=== PATIENT | male | born 1960 | race Caucasian/White ===

== ENCOUNTER 2019-09-05 18:46 | Inpatient (IN) | payer OTHER, SELFPAY ==
[2019-09-05] VITALS (8 sets, daily range): BP systolic 164–207; BP diastolic 94–111; PULSE 64–82; RESP 18–22; TEMP 37; O2SAT 96–100; BMI 26.9
--- NOTE | ~2019-09-05 | MR_ITS ---
EXAMINATION: MR brain/brain stem wo/w con DATE: 09/06/2019 09:36 INDICATION: Left hemiparesis. Facial weakness. TECHNIQUE: Magnetic resonance imaging (MRI) of the brain and brainstem was performed without and with 17 mL MultiHance intravenous contrast. Sequences included sagittal and axial T1-weighted FSE, axial diffusion-weighted FS EPI, axial T2*-weighted GRE, axial T2-weighted FLAIR Propeller, and axial T2-we ighted Propeller. Postcontrast sequences included axial and coronal T1-weighted FSE. Apparent diffusi on coefficient (ADC) maps were created. COMPARISON: Head CTA 09/06/2019 FINDINGS: There are scattered areas of nonspecific increased T2-weighted signal intensity in the cere bral white matter. There are old lacunar infarcts in the alisia and right thalamus. There is no intracr anial hemorrhage, acute infarction, or abnormal intracranial mass lesion. The ventricles are normal i n size. The paranasal sinuses are clear. The orbits are normal. The mastoid air cells are normal. IMPRESSION: 1. Old lacunar infarcts in the alisia and right thalamus. 2. Mild nonspecific cerebral white matter disease, which likely represents chronic small vessel ische shayla disease. Reviewed, dictated and finalized at location A. IMPRESSION: 1. Old lacunar infarcts in the alisia and right thalamus. 2. Mild nonspecific cerebral white matter disease, which likely represents sales utility representative axel small vessel ischemic disease.
--- NOTE | ~2019-09-05 | US_ITS ---
EXAMINATION: US carotid duplex BI DATE: 09/06/2019 16:34 INDICATION: Left hemiparesis. TECHNIQUE: Grayscale, color Doppler, and pulsed Doppler images of the cervical carotid arteries were obtained. The degree of vessel stenosis is placed in one of the following categories: normal, <50%, 5 0-69%, >=70% but less than near-occlusion, near-occlusion, or total occlusion. Note that percent sten osis relative to normal distal artery lumen diameter is indirectly measured from velocity measurement s as described by Willie, et al. Radiology 2003; 229:340-346. COMPARISON: None. FINDINGS: RIGHT: The right common carotid artery (CCA) peak systolic velocity (PSV) is 86 cm/s. The right internal car otid artery (ICA) PSV is 48 cm/s. The right ICA end-diastolic velocity (EDV) is 14 cm/s. The right IC A/CCA PSV ratio is 0.6. Grayscale and color Doppler images yield an estimate of <50% diameter reducti on from plaque in the ICA. There is antegrade flow in the right vertebral artery. LEFT: The left CCA PSV is 86 cm/s. The left ICA PSV is 56 cm/s. The left ICA EDV is 19 cm/s. The left ICA/C CA PSV ratio is 0.7. Grayscale and color Doppler images yield an estimate of <50% diameter reduction from plaque in the ICA. There is antegrade flow in the left vertebral artery. IMPRESSION: 1. <50% stenosis in the right internal carotid artery. 2. <50% stenosis in the left internal carotid artery. Reviewed, dictated and finalized at location A.
--- NOTE | ~2019-09-05 | CT_ITS ---
EXAMINATION: CT BRAIN W/O DATE: 09/05/2019 18:52 INDICATION: CVA symptoms TECHNIQUE: Computed tomography (CT) of the head was performed without intravenous contrast. The dose- length product was 681.00 mGy-cm. . The mA was adjusted according to patient size. Iterative reconstr uction technique was employed. COMPARISON: No prior studies for comparison. FINDINGS: Normal brain parenchymal volume for age. Normal whitney-white differentiation. There is a subt le hypodensity in the alisia. Cannot exclude acute infarction. No ventriculomegaly or midline shift. Midline sagittal images demonstrate a normal corpus callosum, c raniovertebral junction and sella turcica. Basilar cisterns are patent. Paranasal sinuses and mastoids are pneumatized. No depressed skull fractures. IMPRESSION: 1. Subtle hypodensity of the alisia. Cannot exclude acute infarction. Recommend correlation with MRI. As per stroke protocol, I called these results to emergency room, discussed with Reyna Xavier at 09/05/2019 18:58 CDT. Reviewed, dictated and finalized at location A. IMPRESSION: 1. Subtle hypodensity of the alisia. Cannot exclude acute infarction. Recommend c orrelation with MRI. As per stroke protocol, I called these results to emergency room, discussed wit h Dr. Keri Cobos MD at 09/05/2019 18:58 CDT.
--- NOTE | ~2019-09-05 | CT_ITS ---
EXAMINATION: CTA brain DATE: 09/06/2019 05:29 INDICATION: Acute stroke with facial droop and left-sided weakness. TECHNIQUE: Computed tomographic angiography (CTA) of the head was performed without and with 100 mL O mnipaque-350 intravenous contrast. Volume-rendered and maximum intensity projection 3D reconstruction s of the intracranial arteries were created by the technologist on a separate workstation. The dose-l ength product was mGy-cm. COMPARISON: None. FINDINGS: Minimal atherosclerotic calcification at the supraclinoid portion of the right internal carotid arter y. There is no hemodynamically significant stenosis in the vertebral, basilar and internal carotid ar teries. Vertebral arteries are codominant. There are no aneurysms identified. Both A1 and P1 segment s are patent. The right A1 segment is however significantly smaller than the left with additional sup ply to the right anterior cerebral artery likely supplied via a large patent anterior to indicating a rtery. Cerebral arterial arborization appears symmetric. The dural sinuses are patent. No abnormally enhancing brain lesions identified. No acute intracranial hemorrhage, acute infarction or abnormal ex tra axial fluid collection. Ventricles are normal and symmetric. No mass/mass effect. The orbits, par anasal sinuses and mastoid air cells are normal. IMPRESSION: 1. No acute intracranial process with normal cerebral angiogram demonstrating no significant stenosis , thrombosis or aneurysm. Reviewed, dictated and finalized at location A. IMPRESSION: 1. No acute intracranial process with normal cerebral angiogram demonstrating n o significant stenosis, thrombosis or aneurysm.
--- NOTE | ~2019-09-05 | XR_ITS ---
EXAMINATION: XR chest 1V portable 09/05/2019 19:49 INDICATION: Hypertension. CVA. PROCEDURE: AP portable chest COMPARISON: No prior studies for comparison. FINDINGS: The lungs are clear. The lungs are hyperinflated which is consistent with, but not diagnost ic of chronic obstructive pulmonary disease. The cardiomediastinal silhouette is within normal limits . There are no pleural effusions. There is no pneumothorax suspected. IMPRESSION: 1: NO ACUTE CARDIOPULMONARY DISEASE. Reviewed, dictated and finalized at location A.
--- NOTE | ~2019-09-05 | CT_ITS ---
EXAMINATION: CTA neck DATE: 09/06/2019 16:46 INDICATION: Left hemiparesis. TECHNIQUE: Computed tomographic angiography (CTA) of the neck was performed with 100 mL Omnipaque-350 intravenous contrast. Automated exposure control and iterative reconstruction technique were employe d. The dose-length product was 562.06 mGy-cm. Maximum intensity projection 3D-reconstructions were cr eated by the technologist on a separate workstation. COMPARISON: None. FINDINGS: There is mild emphysema. There are no pathologically enlarged lymph nodes. Mild stenosis of proximal right vertebral artery. The vertebral arteries are codominant. There is plaque in the proxi mal internal carotid arteries. There is 0% stenosis of the proximal right internal carotid artery rel ative to normal distal artery lumen diameter (NASCET criteria). There is 0% stenosis of the proximal left internal carotid artery relative to normal distal artery lumen diameter. There is severe cervica l spondylosis. IMPRESSION: 1. 0% stenosis of the proximal internal carotid arteries relative to normal distal artery lumen diam eters (NASCET criteria). Reviewed, dictated and finalized at location A. IMPRESSION: 1. 0% stenosis of the proximal internal carotid arteries relative to normal di stal artery lumen diameters (NASCET criteria).
--- NOTE | 2019-09-05 18:46 | ECG_ITS ---
Measurements Intervals [place] Rate: 77 P: 37 [place]: 171 QRS: 27 QRSD: 76 T: 27 QT: 370 QTc: 420 Interpretive Statements SINUS RHYTHM EARLY PRECORDIAL R/S TRANSITION BASELINE WANDER- II, III BORDERLINE ECG Electronically Signed On 09-05-2019 19:28:45 CDT by Pardeep Landrum D.O.
[2019-09-05 19:03] LABS: Glucose Point of Care 90 (65-105)
[2019-09-05 19:12] LABS: Basophils Absolute Auto 0.1 K/mm3 (0.0-0.1); Basophils Percent Auto 0.6 % (0.2-1.2); Eosinophils Absolute Auto 0.3 K/mm3 (0-0.3); Eosinophils Percent Auto 2.4 % (0-4.4); Hematocrit 43.4 % (42.0-52.0); Immature Granulocyte Absolute 0.03 K/mm3 (0.00-0.031); Immature Granulocyte Percent A 0.2 % (0-0.5); Lymphocytes Absolute Auto 5.44 K/mm3 (0.9-3.2); Lymphocytes Percent Auto 43.8 % (18.3-44.2); Mean Corpuscular HGB Conc 34.6 g/dl (32-36); Mean Corpuscular Hemoglobin 32.4 pg (26-34); Mean Corpuscular Volume 93.7 fl (80-100); Mean Platelet Volume 10.1 fl (7.4-10.4); Monocytes Absolute Auto 1.1 K/mm3 (0.1-0.6); Monocytes Percent Auto 8.9 % (2.6-8.5); Neutrophils Absolute Auto 5.5 K/mm3 (1.3-6.7); Neutrophils Percent Auto 44.1 % (45.5-73.1); Platelet Count Result 233 k/mm3 (150-375); Red Blood Count 4.63 M/mm3 (4.6-6.20); Red Cell Distribution Width 13.2 % (11.5-14.5); White Blood Count 12.4 K/mm3 (4.5-10.0)
[2019-09-05 19:21] LABS: INR 0.9; Prothrombin Time 12.3 Seconds (11.1-14.7)
[2019-09-05 19:22] LABS: Partial Thromboplastin Time 28.2 SECONDS (22.3-36.8)
[2019-09-05 19:23] LABS: Blood Urea Nitrogen 22 mg/dL (9-20); Calcium 8.4 mg/dL (8.4-10.2); Carbon Dioxide 24 mmol/L (22-30); Chloride 107 mmol/L (98-107); Estimated Glomerular Filt Rate > 60; Glucose 92 mg/dL (75-110); Potassium 3.4 mmol/L (3.4-5.0); Sodium 138 mmol/L (137-145)
--- NOTE | 2019-09-05 19:23 | ED.NEUROSD ---
HPI - Neuro Symptoms/Deficit General Chief Complaint: Suspected CVA Stated Complaint: Stroke like symptoms - resolved Time Seen by Provider: 09/05/19 19:00 History of Present Illness HPI Narrative: Patient is a 58-year-old male who presents ER with strokelike symptoms. At 6:10 PM patient developed left-sided weakness and left-sided facial droop. He had dysarthria and when he walks he felt extremely imbalanced. Symptoms lasted for 25 minutes. He is currently symptom-free. No chest pain or shortness of breath. Had seen his PCP earlier today, reports he has mildly elevated blood pressure in the 150 systolic but that he is not on any medication for this. He is a smoker but plans on quitting after the events today. Related Data Allergies Allergy/AdvReac Type Severity Reaction Status Date / Time No Known Allergies Allergy Unverified 11/27/15 12:12 Review of Systems Review of Systems: All systems reviewed & are unremarkable except as noted in HPI and below Cardiovascular: Cardiovascular: Denies chest pain, Denies rapid heart rate and Denies radiating jaw, neck or arm pain Respiratory: Respiratory: Denies cough, Denies dyspnea and Denies wheezing Neurologic: Reports dizziness, Denies headache(s), Reports focal weakness and Denies numbness PMFSH Past Medical History Medical History (Updated 09/05/19 @ 20:02 by Anam Sanchez MD) Hypertension Surgical History Surgical History (Updated 09/05/19 @ 19:25 by Anam Sanchez MD) H/O inguinal hernia repair Family History Family History (Updated 11/13/15 @ 09:47 by DOCTOR UNKNOWN) Father Family history of malignant neoplasm Social History Social History Smoking status: Heavy tobacco smoker Alcohol intake: current Gender identity (if verbalized by the patient): Male Exam Narrative: Exam Narrative: GENERAL: Well-appearing, well-nourished, and in no acute distress. HEAD: Normocephalic, atraumatic. EYES: PERRL and EOMI. CHEST: Clear to auscultation. No respiratory distress. HEART: Regular rate and rhythm. Normal and equal peripheral pulses. ABDOMEN: Soft, nontender, nondistended. EXTREMITIES: Normal range of motion. No edema. SKIN: Warm, dry, no rash. NEURO: No focal deficits. Cranial nerves II through XII intact. No upper or lower extremity drift. Normal bwlrlw-ed-zoeu and ssfd-jx-hddz testing. No ataxia with walking. No dysarthria. Alert and oriented x3. PSYCH: Normal mood and affect. Course Course Emergency Course: Patient informed of results and treatment plan. Admit to hospitalist service. Blood pressure coming down nicely without intervention. Vital Signs Vital signs: Vital Signs Temperature 98.6 F 09/05/19 19:16 Pulse Rate 76 09/05/19 19:16 Respiratory Rate 22 H 09/05/19 19:16 Blood Pressure 207/111 H 09/05/19 19:16 Pulse Oximetry 96 09/05/19 19:16 Temperature 98.6 F 09/05/19 19:16 Pulse Rate 67 09/05/19 19:49 Respiratory Rate 20 09/05/19 19:49 Blood Pressure 164/94 H 09/05/19 19:49 Pulse Oximetry 98 09/05/19 19:49 MDM - Neuro Symptoms/Deficit Lab Data Result diagrams: 09/05/19 19:03 09/05/19 19:03 Labs: Lab Results 09/05/19 09/05/19 09/05/19 Range/Units 18:58 19:03 19:03 WBC 12.4 H (4.5-10.0) K/mm3 RBC 4.63 (4.6-6.20) M/mm3 Hgb 15.0 (14.0-18.0) g/dL Hct 43.4 (42.0-52.0) % MCV 93.7 (80-100) fl MCH 32.4 (26-34) pg MCHC 34.6 (32-36) g/dl RDW 13.2 (11.5-14.5) % Plt Count 233 (150-375) k/mm3 MPV 10.1 (7.4-10.4) fl Immature Gran % (Auto) 0.2 (0-0.5) % Neut % (Auto) 44.1 L (45.5-73.1) % Lymph % (Auto) 43.8 (18.3-44.2) % [place] % (Auto) 8.9 H (2.6-8.5) % Eos % (Auto) 2.4 (0-4.4) % Baso % (Auto) 0.6 (0.2-1.2) % Lymph # (Auto) 5.44 H (0.9-3.2) K/mm3 [place] # (Auto) 1.1 H (0.1-0.6) K/mm3 Eos # (Auto) 0.3 (0-0.3) K/mm3 Baso # (Auto) 0.1 (0.0-0.1) K/mm3 Abs Immat
[2019-09-05 19:35] LABS: Troponin I < 0.012 ng/mL (0.000-0.034)
--- NOTE | 2019-09-05 21:07 | PM.IMHP ---
H&P: HPI History of Present Illness Chief complaint: stroke, hypertension Narrative: This is a 58 year old male who is a known chronic smoker with no known medical problems presented to the hospital with a complaint of stroke like symptoms that lasted about 20 minutes in duration around 6 pm this evening. At about 6:10 pm the patient was starting his car and he suddenly developed severe bilateral lower extremity weakness, left upper extremity weakness, left facial droop, and slurred speech. He could not ambulate at first and his called EMS. Within 15 mintues his symptoms started to resolve. He took 4 ASA at home prior to EMS arriving. On arrival to the Emergency Room the patient no longer has any stroke like symptoms. He was found to have elevated blood pressure in the ER tonight. He denies any fever, chills, shortness of breath, cough, chest pain, sore throat, headache, blurry vision, passing out, seizure like activity, abdominal pain, nausea, vomiting, diarrhea, rectal bleeding or LE edema. The patient states that he will no longer smoke cigarettes after today. CT brain demonstrated subtle hypodensity of the alisia. The patient has been admitted to the hospital for a possible CVA. Review of Systems Review of Systems: All systems reviewed & are unremarkable except as noted in HPI and below PMFSH Past Medical History Medical History Hypertension Surgical History Surgical History H/O inguinal hernia repair Family History Family History Father Family history of malignant neoplasm Lung cancer Mother Lung cancer Social History Social History Smoking packs per day: 1 Smoking cigarettes per day: 20.0 Years smoked: 39 Smoking pack-years: 39.00 Smoking status: Current every day smoker Tobacco type: cigarettes and cigars Smoking end date: 09/05/19 Alcohol intake: current Drinks per week: 40 Substance use: never Gender identity (if verbalized by the patient): Male Spiritual care concerns: No Meds Home Medications and Allergies Home Medications Medication Instructions Recorded Confirmed Type B Complex-Vitamin B12 1 caplet PO DAILY 09/05/19 09/05/19 History ascorbic acid (vitamin C) 5,000 mg PO DAILY 09/05/19 09/05/19 History cholecalciferol (vitamin D3) 5,000 unit PO BID 09/05/19 09/05/19 History magnesium gluconate 400 mg PO DAILY 09/05/19 09/05/19 History vitamin K2 40 mcg PO DAILY 09/05/19 09/05/19 History Allergies Allergy/AdvReac Type Severity Reaction Status Date / Time No Known Allergies Allergy Verified 09/05/19 20:46 Vital Signs Vital Signs - 24 hr 09/05/19 19:16 09/05/19 19:44 09/05/19 19:49 Temperature 37.0 C Pulse Rate 76 71 67 Respiratory Rate 22 H 18 20 Blood Pressure 207/111 H 173/102 H 164/94 H Pulse Oximetry 96 98 98 09/05/19 20:53 09/05/19 20:57 Temperature Pulse Rate 72 82 Respiratory Rate 18 18 Blood Pressure 169/96 H 168/96 H Pulse Oximetry 98 98 Exam Const: General: cooperative, healthy appearing, no acute distress, alert and awake Nutritional Appearance: well nourished Orientation/consciousness: patient oriented x3 HENMT: Head: normal to inspection General nose exam: Normal external nose present Face and sinus: normal facial exam Mouth: Yes Normal oral and palatal mucosa present and Yes oropharynx normal Eyes: Pupils: Equal, round and reactive pupils present EOM: EOMs intact bilaterally Neck: Neck: supple and no JVD Thyroid: thyroid normal Lymphatic: lymphadenopathy not noted Resp: Effort & Inspection: normal respiratory effort Auscultation: clear to auscultation bilaterally Cardio: Rate: regular rate Rhythm: regular rhythm Heart sounds: no murmurs GI: Inspection: normal to inspection Auscultation: nor
--- NOTE | 2019-09-05 21:15 | ADMGEN ---
This patient, Jose Kumar, was admitted to Medical Room 342-01. Patient/family oriented to hospital policies and general routines including ID bracelet, bed and alarms, visiting hours, pain management, procedures, bathroom and other care routines, personal items, smoking policy, room service/diet, and visiting hours. Valuables list has been completed. Information on how to activate the Rapid Response Team has been discussed. Patient/Family are encouraged to report perceived risks to care and to ask questions if they do not understand what they are told or what they should do.
[2019-09-06] VITALS (19 sets, daily range): BP systolic 136–185; BP diastolic 81–102; PULSE 52–74; RESP 18–20; TEMP 36–36.6; O2SAT 97–100
[2019-09-06] MEDS: hydrALAZINE HCL 20 MG/ML VIAL 10 MG IV PUSH (05:04)
--- NOTE | 2019-09-06 05:04 | ECG_ITS ---
Measurements Intervals [place] Rate: 56 P: 66 [place]: 160 QRS: 51 QRSD: 93 T: 40 QT: 442 QTc: 427 Interpretive Statements SINUS BRADYCARDIA EARLY PRECORDIAL R/S TRANSITION VOLTAGE CRITERIA FOR LVH BORDERLINE ECG Electronically Signed On 09-06-2019 7:07:55 CDT by Pardeep Landrum D.O.
--- NOTE | 2019-09-06 05:08 | PC.NURSE ---
at 0500 patient called and when staff checked on patient he was found having the same stroke symptoms that he presented to the ED with. Rapid response code stroke called.
--- NOTE | 2019-09-06 05:14 | PM.EVENT ---
Event Note Event Note Event Note: Rapid Response Note This 58 year old male was admitted to the hospital last night for stroke like symptoms which resolved. Rapid Response was called overhead as the patient started to exhibit similar stroke like symptoms again. The patient began to experience left sided weakness, left sided facial droop and slurred speech around 5 am. His symptoms lasted less than 5 minutes and then began to resolve quickly. CTA Brain was obtained and I have called and discussed the case w/ and he is in agreement that we should load the patient with Plavix 600 mg PO. ~Acute Ischemic stroke -Transfer to IMU -Close monitoring of brain function -Continue Neurology recommendations -MRI pending this morning -I will reassess as needed
[2019-09-06] MEDS: CLOPIDOGREL BISULFATE 300 MG TABLET 600 MG PO (05:51)
--- NOTE | 2019-09-06 06:00 | ECHO_ITS ---
Patient Info Name: Jose Kumar Age: 58 years : 1960 Gender: Male Ht: 70 in Wt: 187 lbs BSA: 2.06 m2 HR: 63 bpm BP: 180 / 102 mmHg Heart Rhythm: Sinus Rhythm Technical Quality: Good Exam Date: 09/06/2019 11:35 AM Exam Location: [facility] Patient Status: Inpatient Admit Date: 09/05/2019 Staff Ordering Physician: Anam Sanchez MD [place] Head Tender: Raphael Madsen RDCS, RT Attending Provider: Quentin Alston MD Referring Physician: Daniel SILVEIRA; Exam Type: CA echo doppler color flow Study Info Indications I63.219 - Cerebral infarction due to unspecified occlusion or stenosis of unspecified vertebral arteries Complete two-dimensional, color flow and Doppler transthoracic echocardiogram is performed. Summary 1. Left ventricular systolic function is normal, estimated at 65-70%. 2. There is mildly increased left ventricular wall thickness. 3. The left ventricular diastolic function is grade I diastolic dysfunction. 4. There is trace tricuspid valve regurgitation. 5. Unable to estimate PA systolic pressure due to poor spectral resolution of tricuspid regurgitant jet velocity. 6. There is trace mitral valve regurgitation. 7. Consider bubble study and/or transesophageal echocardiogram if clinically indicated given concern for stroke. Recommendations * Consider bubble study and/or transesophageal echocardiogram if clinically indicated given concern for stroke. Left Ventricle Left ventricular chamber dimension is normal. Left ventricular systolic function is normal, estimated at 65-70%. There is mildly increased left ventricular wall thickness. The left ventricular diastolic function is grade I diastolic dysfunction. Global longitudinal strain is mildly elevated at -17 %. Right Ventricle Right ventricular chamber dimension is normal. Right ventricular systolic function is normal. Left Atria Left atrial chamber dimension is normal. Right Atria Right atrial chamber dimension is normal. Aortic Valve The aortic valve is trileaflet. There is no aortic valve stenosis. There is no aortic valve regurgitation. Pulmonic Valve The pulmonic valve is not well visualized. There is trace pulmonic regurgitation. Mitral Valve The mitral valve has normal leaflets. There is trace mitral valve regurgitation. Tricuspid Valve The tricuspid valve leaflets are normal. There is trace tricuspid valve regurgitation. Unable to estimate PA systolic pressure due to poor spectral resolution of tricuspid regurgitant jet velocity. Pericardium/Pleural The pericardium appears normal. There is no pericardial effusion. Inferior Vena Cava Normal inferior vena cava with >50% collapse upon inspiration consistent with normal right atrial pressure, 5 mmHg. Aorta The aortic root size at the sinus of Valsalva is normal. Left Ventricular Outflow Tract Name Value Normal LVOT Doppler LVOT Peak Gradient 6 mmHg LVOT Mean Gradient 3 mmHg LVOT VTI 24 cm LVOT VTI/AV VTI Ratio 0.9 Mitral Valve Name
--- NOTE | 2019-09-06 06:32 | PC.NURSE ---
This patient, Jose Kumar, was received from [ ] on 09/06/19 at 0632. Personal belongings list checked and signed. Patient/family oriented to unit policies and routines
--- NOTE | 2019-09-06 06:33 | PC.NURSE ---
This patient, Jose Kumar, was transferred to [IMU 205] on 09/06/19 at 0625. Personal belongings sent with patient. Belongings list checked and signed with receiving [ ]. Report given to [ Xiomy]. Appropriate documentation sent with patient.
[2019-09-06 06:55] LABS: Basophils Absolute Auto 0.1 K/mm3 (0.0-0.1); Basophils Percent Auto 0.7 % (0.2-1.2); Eosinophils Absolute Auto 0.2 K/mm3 (0-0.3); Eosinophils Percent Auto 2.2 % (0-4.4); Hematocrit 45.9 % (42.0-52.0); Hemoglobin 15.9 g/dL (14.0-18.0); Immature Granulocyte Absolute 0.04 K/mm3 (0.00-0.031); Immature Granulocyte Percent A 0.4 % (0-0.5); Lymphocytes Absolute Auto 3.09 K/mm3 (0.9-3.2); Lymphocytes Percent Auto 29.4 % (18.3-44.2); Mean Corpuscular HGB Conc 34.6 g/dl (32-36); Mean Corpuscular Hemoglobin 32.6 pg (26-34); Mean Corpuscular Volume 94.3 fl (80-100); Mean Platelet Volume 10.4 fl (7.4-10.4); Neutrophils Absolute Auto 6.1 K/mm3 (1.3-6.7); Neutrophils Percent Auto 58.3 % (45.5-73.1); Platelet Count Result 228 k/mm3 (150-375); Red Blood Count 4.87 M/mm3 (4.6-6.20); Red Cell Distribution Width 13.3 % (11.5-14.5); White Blood Count 10.5 K/mm3 (4.5-10.0)
[2019-09-06 07:10] LABS: Blood Urea Nitrogen 17 mg/dL (9-20); Calcium 8.4 mg/dL (8.4-10.2); Carbon Dioxide 19 mmol/L (22-30); Chloride 110 mmol/L (98-107); Cholesterol 182 mg/dL (0-200); Estimated CRCL calculation 92 ml/min; Estimated Glomerular Filt Rate > 60; Glucose 96 mg/dL (75-110); HDL Direct 49 mg/dL; Potassium 3.6 mmol/L (3.4-5.0); Sodium 136 mmol/L (137-145); Triglycerides 86 mg/dL (<150)
[2019-09-06 07:21] LABS: LDL Cholesterol Direct 112 mg/dL
--- NOTE | 2019-09-06 08:49 | PM.IMPN ---
Progress Note: A&P Assessment and Plan (1) Stroke: Qualifiers: CVA mechanism: other Qualified Code(s): I63.89 - Other cerebral infarction Code(s): I63.9 - Cerebral infarction, unspecified Status: Acute Assessment and Plan: Patient having recurrent left sided weakness. CT brain on admission showing subtle hypodensity of the alisia. CTA brain showing no acute intracranial process (but did not include the carotids). Continue telemetry and neurochecks. Monitor blood pressure closely and allow for permissive HTN. Continue ASA and Plavix therapy per Neurology. Neurology consult ordered. MRI pending. Lipid panel noted. Start Lipitor. Echocardiogram w/ bubble study and Carotid doppler U/S ordered. May need carotid CTA. Will discuss with neurology (2) Essential hypertension: Code(s): I10 - Essential (primary) hypertension Status: Acute Assessment and Plan: Blood pressure reviewed on 09/06/2019. Blood pressure elevated at times. Will allow for permissive HTN for now. Hydralazine IV avaiable as needed w/ parameters. (3) Leukocytosis: Qualifiers: Leukocytosis type: unspecified Qualified Code(s): D72.829 - Elevated white blood cell count, unspecified Code(s): D72.829 - Elevated white blood cell count, unspecified Status: Acute Assessment and Plan: WBC 12.4 on admission but better today. Most likely secondary to stress response from the acute CVA. (4) Tobacco dependence: Code(s): F17.200 - Nicotine dependence, unspecified, uncomplicated Status: Chronic Assessment and Plan: Dr Marquez has counseled the patient for 4 minutes on tobacco cessation. He verbalized his understanding and agreement. Subjective Date/time seen: 09/06/19 08:49 Interval history: 58yo right-handed male with hx of untreated HTN here for left sided weakness. Assuming care. Chart reviewed. Case discussed interlacer. Patient states he has had elevated blood pressure that mostly runs 150/80. This is untreated. He also smokes a pack a day. He feels ?anxious? that he relates to nonsmoking. He denies chest pain or palpitations. He denies any weakness this morning. He has been up walking to the bathroom. He did have another episode acute onset of weakness last evening that resolved on its own. He has been loaded with Plavix overnight. He denies any coughing, dysuria or hematuria. Exam Narrative: Exam Narrative: AF 153/87 54 18 100% ra Gen - NARD lying almost flat in bed Chest - CTA bilaterally, nml RR CV - RRR S1/S2; telemetry showing no significant dysrhythmias Abd - Soft, NT/ND, Positive BS Ext - No pedal edema Neuro - Alert and oriented. Nonfocal exam. Psych - Nml mood and affect Skin - Warm and dry Objective Data Vital Signs Vital Signs: Vital Signs - 24 hr 09/05/19 19:16 09/05/19 19:44 09/05/19 19:49 Temperature 98.6 F Pulse Rate 76 71 67 Respiratory Rate 22 H 18 20 Blood Pressure 207/111 H 173/102 H 164/94 H Pulse Oximetry 96 98 98 09/05/19 20:53 09/05/19 20:57 09/05/19 21:18 Temperature 98.6 F Pulse Rate 72 82 68 Respiratory Rate 18 18 18 Blood Pressure 169/96 H 168/96 H Pulse Oximetry 98 98 100 09/05/19 21:25 09/05/19 22:18 09/06/19 00:00 Temperature Pulse Rate 64 59 L Respiratory Rate Blood Pressure 170/94 H Pulse Oximetry 09/06/19 04:00 09/06/19 05:00 09/06/19 05:38 Temperature Pulse Rate 74 Respiratory Rate Blood Pressure 185/99 H 152/85 H Pulse Oximetry 09/06/19 06:31 09/06/19 08:23 Temperature 97.7 F 96.8 F L Pulse Rate 52 L 54 L Respiratory Rate 18 18 Blood Pressure 180/102 H 153/87 H Pulse Oximetry 99 100 Intake/Output Intake/Output: Intake & Output 09/03/19 09/04/19 09/05/19 09/06/19 23:59 23:59 23:59 23:59 Output Total 750 Balance -750 Meds/Results Medications: Active Medications Generic Name Dose Route Start Last Admin
[2019-09-06] MEDS: ASPIRIN 81 MG CHEWABLE TABLET PO (11:39)
[2019-09-06] MEDS: ATORVASTATIN 40 MG TABLET PO (11:40)
[2019-09-06] MEDS: CLOPIDOGREL BISULFATE 75 MG TABLET PO (11:40)
--- NOTE | 2019-09-06 16:01 | WPDNEURCNPN ---
Assessment and Plan Assessment and plan (1) Tobacco dependence: Code(s): F17.200 - Nicotine dependence, unspecified, uncomplicated Status: Chronic (2) Leukocytosis: Qualifiers: Leukocytosis type: unspecified Qualified Code(s): D72.829 - Elevated white blood cell count, unspecified Code(s): D72.829 - Elevated white blood cell count, unspecified Status: Acute (3) Essential hypertension: Code(s): I10 - Essential (primary) hypertension Status: Acute (4) TIA (transient ischemic attack): Code(s): G45.9 - Transient cerebral ischemic attack, unspecified Status: Acute Additional Plan will order the echo with bubble study and also CTA of the carotid and continue monitoring Consult date: 09/06/19 Time Seen: 16:00 HPI: Jose Kumar is a 58 year old male home I am seeing because of recurrent weakness of the left side however the brain MRI does not show any new evidence of the stroke but the concern is possibility of a TIA on versus a cardiac source for his recurrent TIAs already on aspirin and Plavix and being monitored in the IMU next Patient denies any headache nausea vomiting chest pain shortness of breath fever chills sore throat Review of Systems Review of Systems: All systems reviewed & are unremarkable except as noted in HPI and below PMFSH Past Medical History Medical History Hypertension Surgical History Surgical History H/O inguinal hernia repair Family History Family History Father Family history of malignant neoplasm Lung cancer Mother Lung cancer Social History Social History Smoking packs per day: 1 Smoking cigarettes per day: 20.0 Years smoked: 39 Smoking pack-years: 39.00 Smoking status: Current every day smoker Tobacco type: cigarettes and cigars Smoking end date: 09/05/19 Alcohol intake: current Drinks per week: 40 Substance use: never Gender identity (if verbalized by the patient): Male Spiritual care concerns: No Meds Home Medications and Allergies Home Medications Medication Instructions Recorded Confirmed Type B Complex-Vitamin B12 1 caplet PO DAILY 09/05/19 09/05/19 History ascorbic acid (vitamin C) 5,000 mg PO DAILY 09/05/19 09/05/19 History cholecalciferol (vitamin D3) 5,000 unit PO BID 09/05/19 09/05/19 History magnesium gluconate 400 mg PO DAILY 09/05/19 09/05/19 History vitamin K2 40 mcg PO DAILY 09/05/19 09/05/19 History Allergies Allergy/AdvReac Type Severity Reaction Status Date / Time No Known Allergies Allergy Verified 09/05/19 20:46 Vital Signs Vital Signs - 24 hr 09/05/19 19:16 09/05/19 19:44 09/05/19 19:49 Temperature 37.0 C Pulse Rate 76 71 67 Respiratory Rate 22 H 18 20 Blood Pressure 207/111 H 173/102 H 164/94 H Pulse Oximetry 96 98 98 09/05/19 20:53 09/05/19 20:57 09/05/19 21:18 Temperature 37.0 C Pulse Rate 72 82 68 Respiratory Rate 18 18 18 Blood Pressure 169/96 H 168/96 H Pulse Oximetry 98 98 100 09/05/19 21:25 09/05/19 22:18 09/06/19 00:00 Temperature Pulse Rate 64 59 L Respiratory Rate Blood Pressure 170/94 H Pulse Oximetry 09/06/19 04:00 09/06/19 05:00 09/06/19 05:38 Temperature Pulse Rate 74 Respiratory Rate Blood Pressure 185/99 H 152/85 H Pulse Oximetry 09/06/19 06:31 09/06/19 08:00 09/06/19 08:23 Temperature 36.5 C 36.0 C L Pulse Rate 52 L 53 L 54 L Respiratory Rate 18 18 18 Blood Pressure 180/102 H 153/87 H Pulse Oximetry 99 100 100 09/06/19 10:00 09/06/19 12:00 09/06/19 12:39 Temperature 36.4 C L Pulse Rate 60 61 59 L Respiratory Rate 20 20 Blood Pressure 166/87 H Pulse Oximetry 100 100 09/06/19 14:00 09/06/19 15:22 Temperature Pulse Rate 55 L 63 Respiratory Rate 20
[2019-09-07] VITALS (10 sets, daily range): BP systolic 148–171; BP diastolic 89–99; PULSE 52–73; RESP 16–20; TEMP 36.4–36.6; O2SAT 97–100
--- NOTE | 2019-09-07 | ECHO_ITS ---
Patient Info Name: Jose Kumar Age: 58 years : 1960 Gender: Male Ht: 70 in Wt: 187 lbs BSA: 2.06 m2 HR: 55 bpm BP: 149 / 94 mmHg Heart Rhythm: Sinus Rhythm Technical Quality: Good Exam Date: 09/07/2019 10:53 AM Exam Location: [facility] Pulmonary Patient Status: Inpatient Admit Date: 09/05/2019 Staff Ordering Physician: Jm Thomson MD Software Project Lead: Fernando Patrick RDCS Attending Provider: Quentin Alston MD Referring Physician: Alix MASTERS; Exam Type: CA echo limited w bubble study Study Info Indications 436.0 - CVA Limited two-dimensional transthoracic echocardiogram is performed with agitated saline. Contrast/Agitated Saline Contrast/Ag. Saline: Agitated Saline Amount: 18.00 ml Administered By: Rito Monroe, RN Existing IV Access: Yes History/Risk Factors Tess stroke w/ left sided weakness; HTN. Summary 1. No intracardiac shunt with injection of agitated saline with or without Valsalva identified. 2. Limited study. 3. Left ventricular systolic function is normal, estimated at 65-70%. Left Ventricle Left ventricular systolic function is normal, estimated at 65-70%. Atrial Septum No intracardiac shunt with injection of agitated saline with or without Valsalva identified. Report Signatures
[2019-09-07] MEDS: ASPIRIN 81 MG CHEWABLE TABLET PO (12:02)
[2019-09-07] MEDS: CLOPIDOGREL BISULFATE 75 MG TABLET PO (12:02)
[2019-09-07] MEDS: ATORVASTATIN 40 MG TABLET PO (12:02)
--- NOTE | 2019-09-07 14:16 | WPDNEUROPN ---
Progress Note: A&P Assessment and Plan (1) TIA (transient ischemic attack): Code(s): G45.9 - Transient cerebral ischemic attack, unspecified Status: Acute (2) Tobacco dependence: Code(s): F17.200 - Nicotine dependence, unspecified, uncomplicated Status: Chronic (3) Leukocytosis: Qualifiers: Leukocytosis type: unspecified Qualified Code(s): D72.829 - Elevated white blood cell count, unspecified Code(s): D72.829 - Elevated white blood cell count, unspecified Status: Acute (4) Stroke: Qualifiers: CVA mechanism: other Qualified Code(s): I63.89 - Other cerebral infarction Code(s): I63.9 - Cerebral infarction, unspecified Status: Acute (5) Essential hypertension: Code(s): I10 - Essential (primary) hypertension Status: Acute (6) Alcoholism: Code(s): F10.20 - Alcohol dependence, uncomplicated Status: Acute Additional Plan discussed with the patient if the bubble study show some defect then he will need the cardiology consultation otherwise he can be discharged on aspirin and Plavix and have discussed again with him refrain from the tobacco and alcohol which are risk factors for having stroke I will be happy to follow in my office in couple of months Review of Systems Review of Systems: All systems reviewed & are unremarkable except as noted in HPI and below Exam Const: General: comfortable and no acute distress HENMT: General nose exam: Normal nares present Mouth: Yes moist mucous membranes Eyes: General: appearance normal, both eyes and all related structures Neck: Neck: supple and no JVD Resp: Effort & Inspection: normal respiratory effort Auscultation: clear to auscultation bilaterally Cardio: Rate: regular rate Rhythm: regular rhythm GI: Auscultation: normal bowel sounds Neuro: Other: patient's neurological examination is completely nonfocal Extrem: General: normal to inspection Psych: Mental Status: mental status grossly normal Objective Data Vital Signs Vital Signs: Vital Signs - 24 hr 09/06/19 15:22 09/06/19 16:00 09/06/19 16:36 Temperature 36.4 C Pulse Rate 63 58 L 59 L Respiratory Rate 20 20 Blood Pressure 165/102 H Pulse Oximetry 100 99 09/06/19 17:51 09/06/19 19:46 09/06/19 20:00 Temperature 36.6 C Pulse Rate 56 L 61 62 Respiratory Rate 18 18 Blood Pressure 167/101 H Pulse Oximetry 99 09/06/19 22:00 09/06/19 23:57 09/07/19 00:00 Temperature 36.5 C Pulse Rate 68 56 L 61 Respiratory Rate 18 18 Blood Pressure 136/81 Pulse Oximetry 97 09/07/19 02:00 09/07/19 04:00 09/07/19 06:00 Temperature 36.6 C Pulse Rate 52 L 73 55 L Respiratory Rate 20 Blood Pressure 148/94 H Pulse Oximetry 97 09/07/19 08:00 09/07/19 12:00 Temperature 36.6 C 36.4 C L Pulse Rate 63 60 Respiratory Rate 16 18 Blood Pressure 149/94 H 169/99 H Pulse Oximetry 99 99 Intake/Output Intake/Output: Intake & Output 09/04/19 09/05/19 09/06/19 09/07/19 23:59 23:59 23:59 23:59 Intake Total 1530 930 Output Total 750 750 Balance 780 180 Meds/Results Medications: Active Medications Generic Name Dose Route Start Last Admin Trade Name Freq PRN Reason Stop Dose Admin Acetaminophen 650 mg 09/05/19 20:03 Tylenol Tablet PO Q4H PRN Mild Pain (1-3) or Fever Aspirin 81 mg 09/06/19 09:00 09/07/19 12:02 Aspirin Chewable PO 81 mg DAILY@0800 [facility] Administration Atorvastatin Calcium 40 mg 09/06/19 09:00 09/07/19 12:02 Lipitor PO 40 mg DAILY LEIGHA Administration Clopidogrel Bisulfate 75 mg 09/06/19 09:00 09/07/19 12:02 Plavix PO 75 mg QAM [facility] Administration Ondansetron HCl 4 mg 09/05/19 20:03 Zofran Inj IV PUSH Q4H PRN Nausea Radiology Results: ITS Impressions Head CT 09/05/19 18:54 IMPRESSION: 1. Subtle hypodensity of the alisia. Cannot exclude acute infarction. Recommend correlation with
--- NOTE | 2019-09-07 17:04 | PM.DS ---
DS: Admitting Diagnosis Admitting Diagnosis Admitting Diagnosis: Nicotine dependence, unspecified, uncomplicated DS: Discharge Diagnosis Discharge Diagnosis (1) TIA (transient ischemic attack): Code(s): G45.9 - Transient cerebral ischemic attack, unspecified Status: Acute Assessment and Plan: Patient had acute left sided weakness including slurred speech and facial droop that resoled completely. CT brain on admission showing subtle hypodensity of the alisia. CTA brain showing no acute intracranial process (but did not include the carotids). Telemetry showed no evidcence of AFib. Serial neurochecks performed. Started on ASA but Plavix added when he had a recurrent episode that again resolved completely. Neurology followed. Echo showing EF 65-70% with diastolic dysfunction grade I. Bubble study was normal. MRI brain showing old lacunar infarcts in the alisia and right thalamus. Lipid panel noted and he was started on Lipitor. Carotid CTA normal as well but did show severe cervical spondylosis. He does take Vitamin K supplement at home and he was advised to stop this. (2) Essential hypertension: Code(s): I10 - Essential (primary) hypertension Status: Acute Assessment and Plan: Blood pressure monitored. Blood pressure elevated at times and we allowed for permissive HTN. Once it was discovered that he had not had an acute CVA, low dose Lisinopril added. Will need further titration of medications b his PCP. (3) Leukocytosis: Qualifiers: Leukocytosis type: unspecified Qualified Code(s): D72.829 - Elevated white blood cell count, unspecified Code(s): D72.829 - Elevated white blood cell count, unspecified Status: Acute Assessment and Plan: WBC 12.4 on admission but improved. Most likely secondary to stress response. (4) Tobacco dependence: Code(s): F17.200 - Nicotine dependence, unspecified, uncomplicated Status: Chronic Assessment and Plan: Patient was counseled on the benefits of tobacco cessation. He verbalized his understanding. DS: Summary Status at Discharge Cognitive/behavioral status at discharge: 58yo right-handed male with hx of untreated HTN here for left sided weakness. Please see H&P for details. Time Spent with Patient Time attestation: Total time spent providing and/or coordinating discharge services:40 minutes Time spent: Greater than 30 minutes Specific discharge activities: Long discussion about benefits of leading a healthy lifestyle. Exam Narrative: Exam Narrative: Feels well. No complaints. BP at home normally runs as high as 150/80. 153/87 54 18 100% ra Gen - NARD Chest - CTA bilaterally, nml RR CV - RRR S1/S2; telemetry showing no significant dysrhythmias Abd - Soft, NT/ND, Positive BS Ext - No pedal edema Neuro - Alert and oriented. Nonfocal exam. Psych - Nml mood and affect Skin - Warm and dry Discharge Plan Discharge Attending physician on discharge: Quentin Alston Consulting providers: Jm Thomson Discharging Clinician: Quentin Alston Anticipated Discharge Date/Time: 09/07/19 17:07 Patient Disposition: Home, Self-Care Activity: as tolerated Diet: heart healthy Discharge Instructions: Follow up with your doctor in 1 week Check your blood pressure at home 1 to 2 times a day at various times. Record and bring in the results to your doctor for review. Return to the emergency room as soon as possible if having any recurrent weakness. Patient Instructions: Antibiotic Form, How to Stop Smoking (DC), Weakness (DC), Stroke (DC) Stand Alone Forms: General Discharge Information Follow-up/Referrals: Jm Thomson MD [Physician] - 6 Weeks LATOYA,CHINTAN Gamboa DO [Primary Care Provider] - Call for Appointment Discharge Medications: New aspirin [Children's Aspirin] 81 mg Tablet,Chewable 81 mg PO DAILY@0800 Qty: 30 RF: 2 atorvastatin 40 mg Tablet 40
== END 2019-09-07 18:19 | disposition home or self-care (01) | DRG 69 ==
LOC: ANHED 20:09 → ANH3MED 20:31 → ANHIMU 09-06 05:48
PROVIDERS: Emergency Medicine; Admitting Provider Family Medicine; Emergency Provider Emergency Medicine; PCP Family Medicine; Visit Provider Internal Medicine
DX: G45.9 Transient cerebral ischemic attack, unspecified (principal); I10 Essential (primary) hypertension; F17.210 Nicotine dependence, cigarettes, uncomplicated; E78.5 Hyperlipidemia, unspecified; F10.20 Alcohol dependence, uncomplicated; R20.2 Paresthesia of skin
CPT/HCPCS: 36415; 70450; 70496; 70498; 70553; 71045; 80048; 80061; 82948; 84443; 84484; 85025; 85610; 85730; 93005; 93306; 93308; 93880; 96375; 99285; A9270; A9577; J0360; Q9967

== ENCOUNTER 2019-09-08 09:57 | Inpatient (IN) | payer OTHER, SELFPAY ==
[2019-09-08] VITALS (9 sets, daily range): BP systolic 154–190; BP diastolic 83–108; PULSE 51–68; RESP 14–20; TEMP 36.3–36.6; O2SAT 97–100; BMI 26.6
--- NOTE | ~2019-09-08 | CT_ITS ---
EXAMINATION: CT brain wo con DATE: 09/08/2019 10:18 INDICATION: Left hemiparesis. Slurred speech. TECHNIQUE: Computed tomography (CT) of the head was performed without intravenous contrast. The mA wa s adjusted according to patient size. Iterative reconstruction technique was employed. The dose-lengt h product was 681.00 mGy-cm. COMPARISON: Head CT 09/06/2019, brain MRI 09/06/2019 FINDINGS: There are scattered areas of low attenuation in the cerebral white matter. There are old la cunar infarcts in the alisia and right thalamus. There is no intracranial hemorrhage, acute infarction, or abnormal intracranial mass lesion. The ventricles are normal in size. There is mild mucosal thick ening in the paranasal sinuses. The orbits are normal. The mastoid air cells are normal. IMPRESSION: 1. Old lacunar infarcts in the alisia and right thalamus. 2. Mild nonspecific cerebral white matter disease, which likely represents chronic small vessel ische shayla disease. Reviewed, dictated and finalized at location A. IMPRESSION: 1. Old lacunar infarcts in the alisia and right thalamus. 2. Mild nonspecific cerebral white matter disease, which likely represents card stripper axel small vessel ischemic disease.
--- NOTE | ~2019-09-08 | MR_ITS ---
EXAMINATION: MR brain/brain stem wo/w con DATE: 09/08/2019 17:24 INDICATION: Dysarthria. TECHNIQUE: Magnetic resonance imaging (MRI) of the brain and brainstem was performed without and with 16 mL MultiHance intravenous contrast. Sequences included sagittal and axial T1-weighted FSE, axial diffusion-weighted FS EPI, axial T2*-weighted GRE, axial T2-weighted FLAIR Propeller, and axial T2-we ighted Propeller. Postcontrast sequences included axial and coronal T1-weighted FSE. Apparent diffusi on coefficient (ADC) maps were created. COMPARISON: Brain MRI 09/06/2019, head CT 09/08/2019 FINDINGS: There is an acute infarct involving the right basal ganglia and posterior limb right graduate intern al capsule. There are scattered areas of nonspecific increased T2-weighted signal intensity in the ce rebral white matter. There is no intracranial hemorrhage or abnormal mass lesion. There are old lacun ar infarcts in the alisia and right thalamus. The ventricles are normal in size. The paranasal sinuses are clear. The orbits are normal. The mastoid air cells are normal. IMPRESSION: 1. Acute infarct involving the right basal ganglia and posterior limb right internal capsule, new fro m 09/06/2019. 2. Old lacunar infarcts in the alisia and right thalamus. 3. Mild nonspecific cerebral white matter disease, which likely represents chronic small vessel ische shayla disease. Reviewed, dictated and finalized at location A. IMPRESSION: 1. Acute infarct involving the right basal ganglia and posterior limb right int ernal capsule, new from 09/06/2019. 2. Old lacunar infarcts in the alisia and right thalamus. 3. Mild nonspecific cerebral white matter disease, which likely represents lunchroom operator axel small vessel ischemic disease.
--- NOTE | ~2019-09-08 | XR_ITS ---
EXAMINATION: XR chest 1V DATE: 09/08/2019 10:21 INDICATION: Slurred speech. Cerebral vascular accident. TECHNIQUE: A single frontal view of the chest was obtained. COMPARISON: Chest single view 09/05/2019, CT abdomen and pelvis 05/14/2013 FINDINGS: The chest demonstrates clear lungs without pneumonia, pleural effusion, or pneumothorax. Th e heart size is normal. There are old healed right rib fractures. IMPRESSION: 1. No acute cardiopulmonary disease. Reviewed, dictated and finalized at location A.
--- NOTE | 2019-09-08 10:07 | ECG_ITS ---
Measurements Intervals [place] Rate: 62 P: 69 AL: 156 QRS: 24 QRSD: 90 T: 24 QT: 409 QTc: 417 Interpretive Statements SINUS RHYTHM VOLTAGE CRITERIA FOR LVH BASELINE ARTIFACT- I, III, AVL BORDERLINE ECG Electronically Signed On 09-08-2019 11:10:43 CDT by Pardeep Landrum D.O.
[2019-09-08 10:32] LABS: Basophils Absolute Auto 0.1 K/mm3 (0.0-0.1); Basophils Percent Auto 0.5 % (0.2-1.2); Eosinophils Absolute Auto 0.2 K/mm3 (0-0.3); Eosinophils Percent Auto 2.5 % (0-4.4); Hematocrit 48.2 % (42.0-52.0); Hemoglobin 16.4 g/dL (14.0-18.0); Immature Granulocyte Absolute 0.03 K/mm3 (0.00-0.031); Immature Granulocyte Percent A 0.3 % (0-0.5); Lymphocytes Absolute Auto 3.31 K/mm3 (0.9-3.2); Lymphocytes Percent Auto 34.1 % (18.3-44.2); Mean Corpuscular Hemoglobin 32.5 pg (26-34); Mean Corpuscular Volume 95.4 fl (80-100); Mean Platelet Volume 10.5 fl (7.4-10.4); Monocytes Absolute Auto 0.7 K/mm3 (0.1-0.6); Monocytes Percent Auto 7.2 % (2.6-8.5); Neutrophils Absolute Auto 5.4 K/mm3 (1.3-6.7); Neutrophils Percent Auto 55.4 % (45.5-73.1); Platelet Count Result 237 k/mm3 (150-375); Red Blood Count 5.05 M/mm3 (4.6-6.20); Red Cell Distribution Width 13.3 % (11.5-14.5); White Blood Count 9.7 K/mm3 (4.5-10.0)
--- NOTE | 2019-09-08 10:32 | ED.NEUROSD ---
HPI - Neuro Symptoms/Deficit General Chief Complaint: Suspected CVA <ELICIA Rojas Last Filed: 09/08/19 12:49> Stated Complaint: slurred speech, left sided weakness <ELICIA oRjas Last Filed: 09/08/19 12:49> Time Seen by Provider: 09/08/19 10:06 <ELICIA Rojas Last Filed: 09/08/19 12:49> Source: patient <ELICIA Rojas Last Filed: 09/08/19 12:49> Mode of arrival: wheelchair <ELICIA Rojas Last Filed: 09/08/19 12:49> Limitations: no limitations <ELICIA Rojas Last Filed: 09/08/19 12:49> History of Present Illness HPI Narrative: This is a 58 year old male that presents to the ER for left-sided weakness since this morning. Reports he started to note some weakness in his left arm and left leg around 9 AM. Reports some difficulty speaking as well. Reports he was seen here for similar symptoms 3 days ago and diagnosed with a stroke. Reports his symptoms had completely resolved until this morning. Denies fever, vision changes, chest pain, shortness of breath, vomiting, or numbness. <Geneva Kincaid PA-C - Last Filed: 09/08/19 12:49> Related Data Home Medications: Home Medications Medication Instructions Recorded Confirmed B Complex-Vitamin B12 1 caplet PO DAILY 09/05/19 09/08/19 ascorbic acid (vitamin C) 5,000 mg PO DAILY 09/05/19 09/08/19 cholecalciferol (vitamin D3) 5,000 unit PO BID 09/05/19 09/08/19 magnesium gluconate 400 mg PO DAILY 09/05/19 09/08/19 <ELICIA Rojas Last Filed: 09/08/19 12:49> Allergies/Adverse Reactions: Allergies Allergy/AdvReac Type Severity Reaction Status Date / Time No Known Allergies Allergy Verified 09/08/19 10:17 <ELICIA Rojas Last Filed: 09/08/19 12:49> Review of Systems Review of Systems: Narrative: CONSTITUTIONAL: Denies fever EYES: Denies visual changes CARDIOVASCULAR: Denies chest pain RESPIRATORY: Denies dyspnea. GASTROINTESTINAL: Denies vomiting NEUROLOGIC: Reports weakness. Denies headache, numbness <Geneva Kincaid PA-C - Last Filed: 09/08/19 12:49> All systems reviewed & are unremarkable except as noted in HPI and below <Geneva Kincaid PA-C - Last Filed: 09/08/19 12:49> [facility] Past Medical History Medical History: Medical History (Updated 09/08/19 @ 16:07 by Mitra Kay PA-C) Alcoholism Hyperlipidemia Hypertension Stroke Tobacco dependence <Geneva Kincaid PA-C - Last Filed: 09/08/19 12:49> Surgical History Surgical History: Surgical History H/O inguinal hernia repair <Geneva Kincaid PA-C - Last Filed: 09/08/19 12:49> Family History Family History: Family History Father Family history of malignant neoplasm Lung cancer Mother Lung cancer <Geneva Kincaid PA-C - Last Filed: 09/08/19 12:49> Social History Social History: Social History (Updated 09/08/19 @ 16:04 by Mitra Kay PA-C) Social History: Former drinking and smoker. He has no food or drug allergies. He would like to be a full code. 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 Smoking packs per day: 1 Smoking cigarettes per day: 20.0 Years smoked: 39 Smoking pack-years: 39.00 Smoking status: Current every day smoker Tobacco type: cigarettes and cigars Smoking end date: 09/05/19 Alcohol intake: current Drinks per week: 40 Substance use: never Substance use type: does not use Gender identity (if verbalized by the patient): Male Spiritual care concerns: No <Geneva Kincaid PA-C - Last Filed: 09/08/19 12:49> Exam Narrative: Exam Narrative: GENERAL: Well-appearing, well-nourished, and in no acute distress. HEAD: Normocephalic, atraumatic. EYES: PERRLA and EOMI. ENT: Nares clear, no rhinorrhea or epistaxis. Mucous membranes moist. Oropharynx without tonsillar hypertrophy exudate or other l
[2019-09-08 10:43] LABS: Prothrombin Time 12.7 Seconds (11.1-14.7)
[2019-09-08 10:44] LABS: Blood Urea Nitrogen 16 mg/dL (9-20); Calcium 8.8 mg/dL (8.4-10.2); Carbon Dioxide 28 mmol/L (22-30); Chloride 105 mmol/L (98-107); Estimated CRCL calculation 82 ml/min; Estimated Glomerular Filt Rate > 60; Glucose 100 mg/dL (75-110); Partial Thromboplastin Time 28.8 SECONDS (22.3-36.8); Sodium 140 mmol/L (137-145)
[2019-09-08 10:50] LABS: Glucose Point of Care 95 (65-105)
[2019-09-08 10:56] LABS: Troponin I < 0.012 ng/mL (0.000-0.034)
[2019-09-08] MEDS: ASPIRIN 325 MG TABLET PO (10:58)
[2019-09-08 11:06] LABS: Ethanol < 10 mg/dL (<10)
[2019-09-08] MEDS: lisinopriL 5 MG TABLET PO (11:24)
[2019-09-08] MEDS: hydrALAZINE HCL 20 MG/ML VIAL 10 MG IV PUSH (12:48)
[2019-09-08 13:17] LABS: Amphetamine Screen Urine Negative (Negative); Barbiturate Screen Urine Negative (Negative); Benzodiazepines Screen Urine Negative (Negative); Cannabinoid Screen Urine Negative (Negative); Cocaine Screen Urine Negative (Negative); Methadone Screen Urine Negative (Negative); Opiate Screen Urine Negative (Negative); Phencyclidine Screen Urine Negative (Negative)
--- NOTE | 2019-09-08 14:25 | ADMGEN ---
This patient, Jose Kumar, was admitted to Medical Room 246-01. Patient/family oriented to hospital policies and general routines including ID bracelet, bed and alarms, visiting hours, pain management, procedures, bathroom and other care routines, personal items, smoking policy, room service/diet, and visiting hours. Valuables list has been completed. Information on how to activate the Rapid Response Team has been discussed. Patient/Family are encouraged to report perceived risks to care and to ask questions if they do not understand what they are told or what they should do.
--- NOTE | 2019-09-08 15:01 | PM.IMHP ---
H&P: HPI History of Present Illness Chief complaint: r/o cva Narrative: Jose Kumar is a 58 year old male who was recently hospitalized for left-sided weakness who presented emergency room this morning for more left-sided weakness with slurred speech. Patient states he was up this morning around 9am taking his blood pressure (which was 180/103) when he noticed he was having problems with slurred speech. He didn't have problems word finding but his speech was slurred and the left side of his face was drooping. They decided to get into the car and come to the ER. 45 min after his facial droop started, he noticed left sided UE weakness and parasthesias. He says he felt like it was harder to keep ahold of things but was not dropping things. He had no problems with LE weakness or foot drop. He denies any URI symptoms, tick bites, or rashes. He has been more emotional lately since his last hospitalizations. He usually drinks about a 5th of alcohol a week but quit cold turkey. He has not had any hallucinations or tremors with this. He also quit smoking thursday as well. He has not had any COVID symptoms nor has his . With that being said, his has traveled to [place] in the last few weeks. Pt denies CP, SOB, palpitations, vision changes, neck pain, seizure like activity, nausea, vomiting, fevers, diarrhea, constipation, fevers or chills. He says these symptoms he is experiencing today are less severe than a few days ago. Review of Systems Review of Systems: All systems reviewed & are unremarkable except as noted in HPI and below PMFSH Past Medical History Medical History (Updated 09/08/19 @ 16:07 by Mitra Kay PA-C) Alcoholism Hyperlipidemia Hypertension Stroke Tobacco dependence Surgical History Surgical History H/O inguinal hernia repair Family History Family History Father Family history of malignant neoplasm Lung cancer Mother Lung cancer Social History Social History (Updated 09/08/19 @ 16:04 by Mitra Kay PA-C) Social History: Former drinking and smoker. He has no food or drug allergies. He would like to be a full code. 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 Smoking cigarettes per day: 20.0 Years smoked: 39 Smoking pack-years: 39.00 Smoking status: Current every day smoker Tobacco type: cigarettes and cigars Smoking end date: 09/05/19 Alcohol intake: current Drinks per week: 40 Substance use: never Substance use type: does not use Gender identity (if verbalized by the patient): Male Spiritual care concerns: No Meds Home Medications and Allergies Home Medications Medication Instructions Recorded Confirmed Type B Complex-Vitamin B12 1 caplet PO DAILY 09/05/19 09/05/19 History ascorbic acid (vitamin C) 5,000 mg PO DAILY 09/05/19 09/05/19 History cholecalciferol (vitamin D3) 5,000 unit PO BID 09/05/19 09/05/19 History magnesium gluconate 400 mg PO DAILY 09/05/19 09/05/19 History aspirin [Children's Aspirin] 81 mg PO DAILY@0800 #30 tablet 09/07/19 Rx atorvastatin 40 mg PO DAILY #30 tablet 09/07/19 Rx clopidogrel 75 mg PO QAM #30 tablet 09/07/19 Rx lisinopril 5 mg PO DAILY #30 tablet 09/07/19 Rx Allergies Allergy/AdvReac Type Severity Reaction Status Date / Time No Known Allergies Allergy Verified 09/08/19 10:17 Vital Signs Vital Signs - 24 hr 09/08/19 10:02 09/08/19 10:49 09/08/19 12:14 Temperature 97.9 F Pulse Rate 55 L 56 L 51 L Respiratory Rate 14 19 16 Blood Pressure 190/106 H 173/103 H 177/108 H Pulse Oximetry 100 98 97 09/08/19 13:48 09/08/19 14:15 Temperature 97.4 F L Pulse Rate 62 56 L Respiratory Rate 16 17 Blood Pressure 157/89 H 154/83 H Pulse Oximetry 100 100 Exam Narrative: Exam Narrative: General:Well developed well nourished patient resting in bed in [facility]: emotional labili
[2019-09-08] MEDS: ALPRAZolam 0.25 MG TABLET PO (16:45)
[2019-09-08] MEDS: ACETAMINOPHEN 325 MG TABLET 650 MG PO (16:45)
[2019-09-08 16:56] LABS: CRP < 0.5 mg/dL (<1.0)
[2019-09-08 17:19] LABS: Erythrocyte Sedimentation Rate 12 mm/hr (0-20)
[2019-09-09] VITALS (11 sets, daily range): BP systolic 138–176; BP diastolic 46–100; PULSE 52–67; RESP 14–21; TEMP 36–36.6; O2SAT 99–100
[2019-09-09] MEDS: ASPIRIN 81 MG CHEWABLE TABLET PO (08:29)
[2019-09-09] MEDS: ATORVASTATIN 40 MG TABLET PO (08:29)
[2019-09-09] MEDS: CLOPIDOGREL BISULFATE 75 MG TABLET PO (08:29)
--- NOTE | 2019-09-09 08:51 | PM.IMPN ---
Progress Note: A&P Assessment and Plan (1) CVA (cerebral vascular accident): Code(s): I63.9 - Cerebral infarction, unspecified Status: Acute Assessment and Plan: -----patient's symptoms and MRI findings are consistent with acute CVA. MRI shows it is in the area basal ganglia and posterior limb right internal capsule. 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 The patient had similar symptoms a few days ago as well and was placed on aspirin and Plavix at that time. We will continue with that and I appreciate neurology's further recommendations. We will continue with ST/PT/OT and see if he would benefit from outpatient therapy. There is no signs of atrial fibrillation. During his last hospitalization a few days ago, he had a negative MRI and CT and a CTA of his head and neck was done which did not show any significant stenosis. With that being said, he is a high risk for stroke because of his risk factors of elevated LDL, smoking, uncontrolled high blood pressure, and recent TIA. Will continue statin therapy. Patient understands he should quit smoking to prevent another stroke. He has last smoked Thursday and does not plan to restart. The patient's blood pressure has been running a little high which we will allow for permissive hypertension. I have changed the parameters today for the hydralazine and we will corrected blood pressure if it is greater than 180. (2) Slurred speech: Code(s): R47.81 - Slurred speech Status: Acute Assessment and Plan: -----due to above (3) Hyperlipidemia: Code(s): E78.5 - Hyperlipidemia, unspecified Status: Acute Assessment and Plan: -----continue Lipitor from last stay (4) Hypertension: Qualifiers: Hypertension type: essential hypertension Qualified Code(s): I10 - Essential (primary) hypertension Code(s): I10 - Essential (primary) hypertension Status: Acute Assessment and Plan: -----last blood pressure 148/100. See above. (5) Tobacco dependence: Code(s): F17.200 - Nicotine dependence, unspecified, uncomplicated Status: Acute Assessment and Plan: -----patient does not desire nicotine patch at this time. Time Spent With Patient Time with patient: 25 - 35 minutes Subjective Date/time seen: 09/09/19 08:51 Interval history: Pt is a 58-year-old male here for acute CVA. Patient seen today and states that he is still having slurred speech and left-sided facial droop but thinks it is a bit better. As for his left-sided weakness, he says it is less weakness but more issues with his dexterity and accuracy. He thinks his energy advisor strength is normal. His headache has resolved. He denies nausea, vomiting, fevers, chills, chest pain, palpitations, shortness of breath, or leg swelling. He is eating and drinking well with no problems with choking. Review of Systems Review of Systems: All systems reviewed & are unremarkable except as noted in HPI and below Exam Narrative: Exam Narrative: General:Well developed well nourished patient resting in bed in NAD HEENT: Normocephalic, atraumatic, PERRL, Sclerae anicteric, oral mucosa moist. Neck: Supple Resp: CTA Heart: RRR with no murmurs. Tele reviewed with no abnormalities. Abd: Soft, nontender. No pain to palpation. Positive bowel sounds Skin: Warm and dry. No rashes, wounds, or bites. Extremities: No swelling, erythema or pain to palpation Neuro: Alert and Oriented x4. Left sided facial droop with slurred speech. Able to do [id number] but accuracy decreased with left hand. Strength and rapid alternating movements normal Objective Data Vital Signs Vital Signs: Vital Signs - 24 hr 09/08/19 10:02 09/08/19 10:49 09/08/19 12:14 Temperature 97.9 F Pulse Rate 55 L 56 L 51 L Respiratory Rate 14 19 16 Blood Pressure 190/106 H 173/103 H 177/108 H Pulse Oximetry 100 98 97 09/08/19 13:48 09/08/19
--- NOTE | 2019-09-09 15:14 | WPDNEURCNPN ---
Assessment and Plan Assessment and plan (1) CVA (cerebral vascular accident): Code(s): I63.9 - Cerebral infarction, unspecified Status: Acute (2) Slurred speech: Code(s): R47.81 - Slurred speech Status: Acute (3) Tobacco dependence: Code(s): F17.200 - Nicotine dependence, unspecified, uncomplicated Status: Acute (4) Hyperlipidemia: Code(s): E78.5 - Hyperlipidemia, unspecified Status: Acute (5) Dysarthria: Code(s): R47.1 - Dysarthria and anarthria Status: Acute (6) Hypertension: Qualifiers: Hypertension type: essential hypertension Qualified Code(s): I10 - Essential (primary) hypertension Code(s): I10 - Essential (primary) hypertension Status: Acute (7) Alcoholism: Code(s): F10.20 - Alcohol dependence, uncomplicated Status: Acute (8) TIA (transient ischemic attack): Code(s): G45.9 - Transient cerebral ischemic attack, unspecified Status: Acute Additional Plan all option risk in the benefits were discussed questions were answered to the best of my ability and their satisfaction we will get Cardiology consultation and in the meantime continue with the aspirin and Plavix Consult date: 09/09/19 Time Seen: 14:30 HPI: Jose Kumar is a 58 year old male who has history of tobacco and alcohol abuse was fully evaluated here in this hospital and was discharged after the full workup without any neurological deficit however came back with again the similar symptoms of the left-sided weakness left facial droop and mild dysarthria which is little better than yesterday the brain MRI shows a new evidence of a stroke he has been on aspirin and Plavix and we did not find any cardiac source for his initial stroke now he does rest to be seen by a order analyst to see if they will be willing to put either loop recorder or event monitor to rule out any remote possibility of atrial fibrillation which he did not have before His was present at the time of the interview the detailed history was taken and counseling was done with both of them Review of Systems Review of Systems: All systems reviewed & are unremarkable except as noted in HPI and below [facility] Past Medical History Medical History Alcoholism Hyperlipidemia Hypertension Stroke Tobacco dependence Surgical History Surgical History H/O inguinal hernia repair Family History Family History Father Family history of malignant neoplasm Lung cancer Mother Lung cancer Social History Social History Social History: Former drinking and smoker. He has no food or drug allergies. He would like to be a full code. 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 Smoking cigarettes per day: 20.0 Years smoked: 39 Smoking pack-years: 39.00 Smoking status: Current every day smoker Tobacco type: cigarettes and cigars Smoking end date: 09/05/19 Alcohol intake: current Drinks per week: 40 Substance use: never Substance use type: does not use Gender identity (if verbalized by the patient): Male Spiritual care concerns: No Meds Home Medications and Allergies Home Medications Medication Instructions Recorded Confirmed Type B Complex-Vitamin B12 1 caplet PO DAILY 09/05/19 09/08/19 History ascorbic acid (vitamin C) 5,000 mg PO DAILY 09/05/19 09/08/19 History cholecalciferol (vitamin D3) 5,000 unit PO BID 09/05/19 09/08/19 History magnesium gluconate 400 mg PO DAILY 09/05/19 09/08/19 History aspirin [Children's Aspirin] 81 mg PO DAILY@0800 #30 tablet 09/07/19 09/08/19 Rx atorvastatin 40 mg PO DAILY #30 tablet 09/07/19 09/08/19 Rx clopidogrel 75 mg PO QAM #30 tablet 09/07/19 09/08/19 Rx lisinopril 5 mg PO DAILY #30 tablet 09/07/19 09/08/19
--- NOTE | 2019-09-09 17:02 | PM.CNCAR ---
Assessment and Plan Additional Plan 58-year-old white male with ischemic neurological events. This began a couple of months ago and 2 events this week. He has been in the hospital several days this week with no evidence of atrial fibrillation but certainly paroxysmal atrial fib is in the differential diagnosis a needs to be considered. Because of the somewhat abnormal/redundant appearance of his atrial septum I believe we should proceed with a transesophageal echocardiogram to examine in this completely and rule out a patent foramen ovale before proceeding with a long-term monitor exam. Obviously it is Thursday evening there is no capability of getting this exam done until Thursday. The patient states that the other physicians anticipate him staying in the hospital over the weekend which is fine since that allows me to schedule his DANIELE for Thursday. If that examination rules out a patent foramen ovale than an event monitor would be reasonable at that time Zhou Burrell MD [facility] History of Present Illness History of Present Illness Consult date/time: 09/09/19 17:02 Reason For Visit: r/o cva Narrative: This is a 58-year-old man I am seeing at the request of the hospitalist this afternoon because of recurrent strokes and concern regarding a potential cardioembolic source. The patient has no history of cardiac problems before this and actually has been enjoying rather good health. He has had symptoms of strokes which in retrospect he states started about 2 months ago. This a couple of months ago he awakened from sleep in the morning with symptoms of a facial droop and some left hemiplegia which resolved after just a couple of minutes and he did not become alarmed by this event and did not seek any medical attention. Several days ago he had the same symptoms occur which lasted for about 15-20 minutes and he became concerned as did his family he was brought to the hospital by ambulance. On route to the hospital the symptoms were already improving and largely resolved in less than 24 hours. He was evaluated by the hospitalist and by a neurological consultants. He is telemetry and ECGs demonstrated nothing but sinus rhythm. He had an echocardiogram done which was interpreted by Dr. Keller which did not show any significant pathology. A saline contrast exam was also done following that report which did not show any obvious cardiac shunt. I did review those images myself after being asked to see him this afternoon and I would only add that his atrial septum did appear to be mildly redundant on at least one view. The neurology neurologist has requested cardiology consult primarily to consider monitoring for occult atrial fibrillation. For this reason I am seeing him today. Patient is in the room he is comfortable he does have mild expressive aphasia with very deliberate speech but otherwise appears to have no significant sequelae at this time. He has been placed on aspirin and clopidogrel. Carotid Dopplers were done which were essentially unremarkable from what I can see. He has had hypertension and is on a modest dose of lisinopril. He is also on atorvastatin for dyslipidemia. Review of Systems Constitutional: Constitutional: Reports no additional constitutional complaints Eyes: Eyes: Reports no additional eye complaints ENT: Reports system reviewed and no additional complaints, except as documented Cardiovascular: Cardiovascular: Reports no additional cardiovascular complaints Respiratory: Respiratory: Reports no additional respiratory complaints Gastrointestinal: Gastrointestinal: Reports no additional gastrointestinal complaints Genitourinary: Genitourinary: Reports no additional male genitourinary complaints Musculoskeletal: Musculoskeletal: Reports as per HPI Integumentary/Breasts: Skin/Breast: Reports system reviewed and no additional complaints, except as docu Neurologic: Reports as per HPI Psychiatric: Psychiatric: Re
[2019-09-10] VITALS (7 sets, daily range): BP systolic 152–164; BP diastolic 84–96; PULSE 55–75; RESP 18–20; TEMP 36.3–37.1; O2SAT 98–100
[2019-09-10] MEDS: CLOPIDOGREL BISULFATE 75 MG TABLET PO (07:57)
[2019-09-10] MEDS: ATORVASTATIN 40 MG TABLET PO (07:57)
[2019-09-10] MEDS: ASPIRIN 81 MG CHEWABLE TABLET PO (07:57)
--- NOTE | 2019-09-10 14:05 | WPDNEUROPN ---
Progress Note: A&P Assessment and Plan (1) CVA (cerebral vascular accident): Code(s): I63.9 - Cerebral infarction, unspecified Status: Acute (2) Slurred speech: Code(s): R47.81 - Slurred speech Status: Acute (3) Tobacco dependence: Code(s): F17.200 - Nicotine dependence, unspecified, uncomplicated Status: Acute (4) Hyperlipidemia: Code(s): E78.5 - Hyperlipidemia, unspecified Status: Acute (5) Paresthesia of left arm: Code(s): R20.2 - Paresthesia of skin Status: Acute (6) Dysarthria: Code(s): R47.1 - Dysarthria and anarthria Status: Acute (7) Hypertension: Qualifiers: Hypertension type: essential hypertension Qualified Code(s): I10 - Essential (primary) hypertension Code(s): I10 - Essential (primary) hypertension Status: Acute (8) Alcoholism: Code(s): F10.20 - Alcohol dependence, uncomplicated Status: Acute (9) TIA (transient ischemic attack): Code(s): G45.9 - Transient cerebral ischemic attack, unspecified Status: Acute (10) Essential hypertension: Code(s): I10 - Essential (primary) hypertension Status: Acute Additional Plan discussed with the patient and his were present who was present at the time of this examination the both her pleased with the improvement he sees and she sees an by myself they are in full agreement to stay in the hospital further monitoring of his heart and also get the DANIELE performed coming Thursday in the meantime we will continue the present medical management PT OT gait training and speech All questions were answered to their satisfaction and to my satisfaction in detail with the different options risk in the benefits of multiple therapies available for the prevention of any future stroke Review of Systems Review of Systems: All systems reviewed & are unremarkable except as noted in HPI and below Exam Const: General: comfortable and no acute distress HENMT: General nose exam: Normal nares present Mouth: Yes moist mucous membranes Eyes: General: appearance normal, both eyes and all related structures Neck: Neck: supple and no JVD Resp: Effort & Inspection: normal respiratory effort Auscultation: clear to auscultation bilaterally Cardio: Rate: regular rate Rhythm: regular rhythm GI: Auscultation: normal bowel sounds Skin: General skin exam: normal color and no rashes or lesions noted Neuro: Other: patient awake and alert will order time placement 1 person his speech is almost back to normal his facial asymmetry is much better he is able to walk better without any assistance is clearly is M has improved from the examination performed by this examiner yesterday Extrem: General: normal to inspection Psych: Mental Status: mental status grossly normal Other: patient is emotionally perturbed and cried little bit although he denies to be depressed but he most likely is depressed and discussed with him and I will put him on a low-dose Lexapro Objective Data Vital Signs Vital Signs: Vital Signs - 24 hr 09/09/19 16:00 09/09/19 20:00 09/09/19 22:00 Temperature 36.6 C Pulse Rate 58 L 60 62 Respiratory Rate 20 Blood Pressure 176/99 H Pulse Oximetry 99 09/10/19 00:00 09/10/19 04:00 Temperature 36.3 C L Pulse Rate 55 L 59 L Respiratory Rate 18 Blood Pressure 156/93 H Pulse Oximetry 100 Intake/Output Intake/Output: Intake & Output 09/07/19 09/08/19 09/09/19 09/10/19 23:59 23:59 23:59 23:59 Intake Total 440 1670 1020 Output Total 1125 751 Balance -789 625 1023 Meds/Results Medications: Active Medications Generic Name Dose Route Start Last Admin Trade Name Freq PRN Reason Stop Dose Admin Acetaminophen 650 mg 09/08/19 16:28 09/08/19 16:45 Tylenol Tablet PO 650 mg Q6H PRN Administration Mild Pain (1-3) or Fever Alprazolam 0.25 mg 09/08/19 16:17 09/08/19 16:45 Xanax PO 0.25 mg
--- NOTE | 2019-09-10 15:19 | PM.IMPN ---
Progress Note: A&P Assessment and Plan (1) CVA (cerebral vascular accident): Code(s): I63.9 - Cerebral infarction, unspecified Status: Acute Assessment and Plan: -----patient's symptoms and MRI findings are consistent with acute CVA. MRI shows it is in the area basal ganglia and posterior limb right internal capsule. 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 The patient had similar symptoms a few days ago as well and was placed on aspirin and Plavix at that time. We will continue with that and I appreciate neurology's further recommendations. Plan for DANIELE on thursday per cardiology. We will continue with ST/PT/OT and see if he would benefit from outpatient therapy. There is no signs of atrial fibrillation. During his last hospitalization a few days ago, he had a negative MRI and CT and a CTA of his head and neck was done which did not show any significant stenosis. With that being said, he is a high risk for stroke because of his risk factors of elevated LDL, smoking, uncontrolled high blood pressure, and recent TIA. Will continue statin therapy. Patient understands he should quit smoking to prevent another stroke. He has last smoked Thursday and does not plan to restart. The patient's blood pressure has been running a little high which we were allowing for permissive htn but now will restart lisionopril. (2) Slurred speech: Code(s): R47.81 - Slurred speech Status: Acute Assessment and Plan: -----due to above (3) Hyperlipidemia: Code(s): E78.5 - Hyperlipidemia, unspecified Status: Acute Assessment and Plan: -----continue Lipitor from last stay (4) Hypertension: Qualifiers: Hypertension type: essential hypertension Qualified Code(s): I10 - Essential (primary) hypertension Code(s): I10 - Essential (primary) hypertension Status: Acute Assessment and Plan: -----last blood pressure 152/84. LIsinopril restarted. (5) Tobacco dependence: Code(s): F17.200 - Nicotine dependence, unspecified, uncomplicated Status: Acute Assessment and Plan: -----patient does not desire nicotine patch at this time. Additional Plan plan for apnea link tonight. Subjective Date/time seen: 09/10/19 15:19 Interval history: Pt is a 58-year-old male here for acute CVA. Patient seen today and states his slurred speech is a bit better but when he is talking a lot or the end of the day it seems to get worse. He is not having any trouble swallowing or choking. He is still struggling with dexterity of his left hand and is working with physical therapy, speech therapy and occupational therapy. He did well with stairs today. He does have some complaints of right when he is about to go to sleep he feels like he can't take big breaths or sometimes he wakes up gasping for air. He thinks this may be due to anxiety but isn't quite sure. This is not associated with cough, chest pain, diaphoresis or loss of consciousness. He has never had a screening for sleep apnea Exam Narrative: Exam Narrative: General:Well developed well nourished patient resting in bed in [facility] HEENT: Normocephalic, atraumatic, PERRL, Sclerae anicteric, oral mucosa moist. Neck: Supple Resp: CTA Heart: RRR with no murmurs. Tele reviewed with no abnormalities. Abd: Soft, nontender. No pain to palpation. Positive bowel sounds Skin: Warm and dry. No rashes, wounds, or bites. Extremities: No swelling, erythema or pain to palpation Neuro: Alert and Oriented x4. Left sided facial droop with slurred speech. Able to do [id number] but accuracy decreased with left hand. Objective Data Vital Signs Vital Signs: Vital Signs - 24 hr 09/09/19 16:00 09/09/19 20:00 09/09/19 22:00 Temperature 97.9 F Pulse Rate 58 L 60 62 Respiratory Rate 20 Blood Pressure 176/99 H Pulse Oximetry 99 09/10/19 00:00 09/10/19 04:00 09/10/19 14:00
[2019-09-11] VITALS (7 sets, daily range): BP systolic 165–175; BP diastolic 93–97; PULSE 5–75; RESP 20; TEMP 36.7–36.8; O2SAT 99–100
[2019-09-11 07:43] LABS: Blood Urea Nitrogen 21 mg/dL (9-20); Calcium 8.6 mg/dL (8.4-10.2); Carbon Dioxide 27 mmol/L (22-30); Chloride 106 mmol/L (98-107); Estimated CRCL calculation 82 ml/min; Estimated Glomerular Filt Rate > 60; Glucose 95 mg/dL (75-110); Magnesium 2.1 mg/dL (1.6-2.3); Phosphorus 4.7 mg/dL (2.5-4.5); Potassium 3.8 mmol/L (3.4-5.0); Sodium 139 mmol/L (137-145)
[2019-09-11] MEDS: MAGNESIUM OXIDE 400 MG TABLET PO (08:02)
[2019-09-11] MEDS: ATORVASTATIN 40 MG TABLET PO (08:02)
[2019-09-11] MEDS: ASPIRIN 81 MG CHEWABLE TABLET PO (08:02)
[2019-09-11] MEDS: lisinopriL 5 MG TABLET PO (08:02)
[2019-09-11] MEDS: CLOPIDOGREL BISULFATE 75 MG TABLET PO (08:02)
[2019-09-11 08:56] LABS: Folic Acid 11.8 ng/mL (2.76->20)
--- NOTE | 2019-09-11 09:42 | PM.PNCARD ---
Progress Note: A&P Additional Plan 58-year-old man with cryptogenic CVA several events over the last 3-4 months. No evidence of significant cardiac pathology and no history of atrial fibrillation. Appears to have some redundancy in the atrial septum on echo as I mentioned in my previous note. For this reason I will proceed with transesophageal echocardiographic exam of this tomorrow. Based on those findings we will determine if closure of PFO is to be considered verses device implantation to monitor for paroxysmal atrial fibrillation. Zhou Burrell MD [facility] Subjective Date/time seen: Date of service: 09/11/19 09:42 Interval history: Follow-up visit in 58-year-old man with history of cryptogenic CVA Patient working with therapist now. Still has some difficulty with expressive aphasia. Exam Const: General: comfortable and no acute distress HENMT: Mouth: Yes dry mucous membranes Eyes: Sclera: sclerae normal Pupils: Equal, round and reactive pupils present Neck: Neck: supple Thyroid: thyroid normal Resp: Effort & Inspection: normal respiratory effort Auscultation: clear to auscultation bilaterally Cardio: Rate: regular rate Rhythm: regular rhythm GI: Auscultation: normal bowel sounds Skin: General skin exam: normal color Neuro: Cognition (Neuro): normal cognition Extrem: General: normal to inspection Objective Data Vital Signs Vital Signs: Vital Signs - 24 hr 09/10/19 12:00 09/10/19 14:00 09/10/19 16:00 Temperature 37.1 C Pulse Rate 75 60 57 L Respiratory Rate 18 Blood Pressure 152/84 H Pulse Oximetry 98 09/10/19 20:00 09/11/19 00:00 09/11/19 04:00 Temperature 36.5 C Pulse Rate 65 61 5 L Respiratory Rate 20 Blood Pressure 164/96 H Pulse Oximetry 99 Intake/Output Intake/Output: Intake & Output 09/08/19 09/09/19 09/10/19 09/11/19 23:59 23:59 23:59 23:59 Intake Total 440 6320 7310 640 Output Total 0445 291 275 Balance -676 156 9657 640 Meds/Results Medications: Active Medications Generic Name Dose Route Start Last Admin Trade Name Freq PRN Reason Stop Dose Admin Acetaminophen 650 mg 09/08/19 16:28 09/08/19 16:45 Tylenol Tablet PO 650 mg Q6H PRN Administration Mild Pain (1-3) or Fever Alprazolam 0.25 mg 09/08/19 16:17 09/08/19 16:45 Xanax PO 0.25 mg TID PRN Administration Anxiety Aspirin 81 mg 09/09/19 08:00 09/11/19 08:02 Aspirin Chewable PO 81 mg DAILY@0800 LEIGHA Administration Atorvastatin Calcium 40 mg 09/09/19 09:00 09/11/19 08:02 Lipitor PO 40 mg DAILY LEIGHA Administration Clopidogrel Bisulfate 75 mg 09/09/19 09:00 09/11/19 08:02 Plavix PO 75 mg QAM LEIGHA Administration Hydralazine HCl 10 mg 09/09/19 08:51 Apresoline Hcl Inj IV PUSH Q8H PRN systolic >180 Lisinopril 5 mg 09/11/19 09:00 09/11/19 08:02 Prinivil PO 5 mg DAILY LEIGHA Administration Lorazepam 1 mg 09/08/19 16:17 Ativan Inj IV PUSH Q6H PRN CIWA >8 Magnesium Oxide 400 mg 09/11/19 09:00 09/11/19 08:02 Mag-Ox PO 10/11/19 09:01 400 mg DAILY LEIGHA Administration Radiology Results: ITS Impressions Head CT 09/08/19 10:19 IMPRESSION: 1. Old lacunar infarcts in the alisia and right thalamus. 2. Mild nonspecific cerebral white matter disease, which likely represents chronic small vessel ischemic disease. Chest X-Ray 09/08/19 10:23 IMPRESSION: 1. No acute cardiopulmonary disease. Brain MRI 09/08/19 17:24 IMPRESSION: 1. Acute infarct involving the right basal ganglia and posterior limb right internal capsule, new from 09/06/2019. 2. Old lacunar infarcts in the alisia and right thalamus. 3. Mild nonspecific cerebral white matter disease, which likely represents chronic small vessel ischemic disease. Labs Labs: Laboratory Results - last 24 hr 09/11/19 06:48 Sodium 139 Potassium 3.8 Chloride 106 Carbon Dioxide 27 BUN 21 H Creatinine
--- NOTE | 2019-09-11 13:26 | PM.IMPN ---
Progress Note: A&P Assessment and Plan (1) CVA (cerebral vascular accident): Code(s): I63.9 - Cerebral infarction, unspecified Status: Acute Assessment and Plan: -----patient's symptoms and MRI findings are consistent with acute CVA. MRI shows it is in the area basal ganglia and posterior limb right internal capsule. 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 Plan for DANIELE on thursday per cardiology. We will continue with ST/PT/OT and see if he would benefit from outpatient therapy. There is no signs of atrial fibrillation. During his last hospitalization a few days ago, he had a negative MRI and CT and a CTA of his head and neck was done which did not show any significant stenosis. With that being said, he is a high risk for stroke because of his risk factors of elevated LDL, smoking, uncontrolled high blood pressure, and recent TIA. Will continue statin therapy. Patient understands he should quit smoking to prevent another stroke. He has last smoked Thursday and does not plan to restart. The patient's blood pressure has been running a little high which we were allowing for permissive htn but now have restarted lisionopril. (2) Slurred speech: Code(s): R47.81 - Slurred speech Status: Acute Assessment and Plan: -----due to above (3) Hyperlipidemia: Code(s): E78.5 - Hyperlipidemia, unspecified Status: Acute Assessment and Plan: -----continue Lipitor from last stay (4) Hypertension: Qualifiers: Hypertension type: essential hypertension Qualified Code(s): I10 - Essential (primary) hypertension Code(s): I10 - Essential (primary) hypertension Status: Acute Assessment and Plan: -----last blood pressure 164/96. Lisinopril restarted. (5) Tobacco dependence: Code(s): F17.200 - Nicotine dependence, unspecified, uncomplicated Status: Acute Assessment and Plan: -----patient does not desire nicotine patch at this time. Additional Plan plan for apnea link tonight. Subjective Date/time seen: 09/11/19 13:26 Interval history: Pt is a 58-year-old male here for acute CVA. Patient seen today and has no new complaints. He has been working with therapy and did well. He thinks that his speech is better and he is able to do more accurate movements with his left arm. He is ready to go home after his procedure tomorrow. He is eating and drinking well. No new complaints. We spoke about his sleep apnea study Exam Narrative: Exam Narrative: General:Well developed well nourished patient resting in bed in NAD HEENT: Normocephalic, atraumatic, PERRL, Sclerae anicteric, oral mucosa moist. Neck: Supple Resp: CTA Heart: RRR with no murmurs. Tele reviewed with no abnormalities. Abd: Soft, nontender. No pain to palpation. Positive bowel sounds Skin: Warm and dry. No rashes, wounds, or bites. Extremities: No swelling, erythema or pain to palpation Neuro: Alert and Oriented x4. Left sided facial droop with slurred speech. Able to do [id number] accuracy improved compared to the day prior Objective Data Vital Signs Vital Signs: Vital Signs - 24 hr 09/10/19 14:00 09/10/19 16:00 09/10/19 20:00 Temperature 98.7 F 97.7 F Pulse Rate 60 57 L 65 Respiratory Rate 18 20 Blood Pressure 152/84 H 164/96 H Pulse Oximetry 98 99 09/11/19 00:00 09/11/19 04:00 09/11/19 08:00 Temperature Pulse Rate 61 5 L 61 Respiratory Rate Blood Pressure Pulse Oximetry 09/11/19 12:00 Temperature Pulse Rate 75 Respiratory Rate Blood Pressure Pulse Oximetry Intake/Output Intake/Output: Intake & Output 09/08/19 09/09/19 09/10/19 09/11/19 23:59 23:59 23:59 23:59 Intake Total 440 1670 2510 880 Output Total 1125 751 275 Balance -666 848 7072 880 Meds/Results Medications: Active Medications Generic Name Dose Route Start Last Admin Trade Name Freq PRN Reason S
--- NOTE | 2019-09-11 17:58 | WPDNEUROPN ---
Progress Note: A&P Assessment and Plan (1) CVA (cerebral vascular accident): Code(s): I63.9 - Cerebral infarction, unspecified Status: Acute (2) Slurred speech: Code(s): R47.81 - Slurred speech Status: Acute (3) Tobacco dependence: Code(s): F17.200 - Nicotine dependence, unspecified, uncomplicated Status: Acute (4) Hyperlipidemia: Code(s): E78.5 - Hyperlipidemia, unspecified Status: Acute (5) Paresthesia of left arm: Code(s): R20.2 - Paresthesia of skin Status: Acute (6) Dysarthria: Code(s): R47.1 - Dysarthria and anarthria Status: Acute (7) Hypertension: Qualifiers: Hypertension type: essential hypertension Qualified Code(s): I10 - Essential (primary) hypertension Code(s): I10 - Essential (primary) hypertension Status: Acute (8) Alcoholism: Code(s): F10.20 - Alcohol dependence, uncomplicated Status: Acute (9) TIA (transient ischemic attack): Code(s): G45.9 - Transient cerebral ischemic attack, unspecified Status: Acute (10) Essential hypertension: Code(s): I10 - Essential (primary) hypertension Status: Acute Additional Plan patient is having relatively higher blood pressure and is being monitored with the permissive hypertension although does lisinopril has been started by the hospitalist which is fine I discussed with him and his all the option and the risk and benefits and the further evaluation of the management as per roustabout crew leader and I told them that as long as his continued to improve the way he has done so far he should be on the dual anti-platelet therapy until a less the DANIELE showed some abnormality or planned E vent monitor shows something again all questions were answered to my satisfaction and there fatigue satisfaction I am hoping helping to see him back in my office in couple of months he should continue refrain from the tobacco and alcohol and continue to do the exercises recommended by the PT and OT Review of Systems Review of Systems: All systems reviewed & are unremarkable except as noted in HPI and below Exam Const: General: comfortable and no acute distress HENMT: General nose exam: Normal nares present Mouth: Yes moist mucous membranes Eyes: General: appearance normal, both eyes and all related structures Neck: Neck: supple and no JVD Resp: Effort & Inspection: normal respiratory effort Auscultation: clear to auscultation bilaterally Cardio: Rate: regular rate Rhythm: regular rhythm GI: Auscultation: normal bowel sounds Skin: General skin exam: normal color and no rashes or lesions noted Neuro: Other: patient is awake alert well oriented time place and person has normal speech and language functions the asymmetrical face significantly improved likewise the left-sided hemiparesis has significantly improved except the left hand which is also improving the patient is is quite happy with his improvement overall Extrem: General: normal to inspection Psych: Mental Status: mental status grossly normal Objective Data Vital Signs Vital Signs: Vital Signs - 24 hr 09/10/19 20:00 09/11/19 00:00 09/11/19 04:00 Temperature 36.5 C Pulse Rate 65 61 5 L Respiratory Rate 20 Blood Pressure 164/96 H Pulse Oximetry 99 09/11/19 08:00 09/11/19 12:00 09/11/19 14:00 Temperature 36.7 C Pulse Rate 61 75 63 Respiratory Rate 20 Blood Pressure 175/97 H Pulse Oximetry 99 09/11/19 16:00 Temperature Pulse Rate 62 Respiratory Rate Blood Pressure Pulse Oximetry Intake/Output Intake/Output: Intake & Output 09/08/19 09/09/19 09/10/19 09/11/19 23:59 23:59 23:59 23:59 Intake Total 440 1670 2510 2360 Output Total 1125 751 275 Balance -910 498 0184 2360 Meds/Results Medications: Active Medications Generic Name Dose Route Start Last Admin Trade Name Freq PRN Reason Stop Dose Admin Acetaminophen 650 mg 07
[2019-09-12] VITALS (14 sets, daily range): BP systolic 139–214; BP diastolic 82–128; PULSE 51–91; RESP 12–22; TEMP 36.4–36.9; O2SAT 93–100
--- NOTE | 2019-09-12 08:20 | PC.NURSE ---
Pt to label cutter for procedure via hospital bed.
--- NOTE | 2019-09-12 08:38 | WPDMODSED ---
Moderate Sedation Note-Pt Data Patient Data Diagnosis: Cryptogenic CVA Present Complaint: Expressive aphasia Procedure to be performed/Plan: Transesophageal echocardiogram Allergies Allergy/AdvReac Type Severity Reaction Status Date / Time No Known Allergies Allergy Verified 09/08/19 10:17 Home Medications Medication Instructions Recorded Confirmed Type B Complex-Vitamin B12 1 caplet PO DAILY 09/05/19 09/08/19 History ascorbic acid (vitamin C) 5,000 mg PO DAILY 09/05/19 09/08/19 History cholecalciferol (vitamin D3) 5,000 unit PO BID 09/05/19 09/08/19 History magnesium gluconate 400 mg PO DAILY 09/05/19 09/08/19 History aspirin [Children's Aspirin] 81 mg PO DAILY@0800 #30 tablet 09/07/19 09/08/19 Rx atorvastatin 40 mg PO DAILY #30 tablet 09/07/19 09/08/19 Rx clopidogrel 75 mg PO QAM #30 tablet 09/07/19 09/08/19 Rx lisinopril 5 mg PO DAILY #30 tablet 09/07/19 09/08/19 Rx Current Medications: Active Medications Acetaminophen (Tylenol Tablet) 650 mg PO Q6H PRN PRN Reason: Mild Pain (1-3) or Fever Last Admin: 09/08/19 16:45 Dose: 650 mg Documented by: Alprazolam (Xanax) 0.25 mg PO TID PRN PRN Reason: Anxiety Last Admin: 09/08/19 16:45 Dose: 0.25 mg Documented by: Aspirin (Aspirin Chewable) 81 mg PO DAILY@0800 [facility] Last Admin: 09/11/19 08:02 Dose: 81 mg Documented by: Atorvastatin Calcium (Lipitor) 40 mg PO DAILY [facility] Last Admin: 09/11/19 08:02 Dose: 40 mg Documented by: Clopidogrel Bisulfate (Plavix) 75 mg PO QAM [facility] Last Admin: 09/11/19 08:02 Dose: 75 mg Documented by: Hydralazine HCl (Apresoline Hcl Inj) 10 mg IV PUSH Q8H PRN PRN Reason: systolic >180 Lisinopril (Prinivil) 5 mg PO DAILY [facility] Last Admin: 09/11/19 08:02 Dose: 5 mg Documented by: Lorazepam (Ativan Inj) 1 mg IV PUSH Q6H PRN PRN Reason: CIWA >8 Magnesium Oxide (Mag-Ox) 400 mg PO DAILY LEIGHA Stop: 10/11/19 09:01 Last Admin: 09/11/19 08:02 Dose: 400 mg Documented by: Sedation/Anesthesia: No previous sedation/anesthesia problems (including family history). [facility] Past Medical History Medical History Alcoholism Hyperlipidemia Hypertension Stroke Tobacco dependence Surgical History Surgical History H/O inguinal hernia repair Family History Family History Father Family history of malignant neoplasm Lung cancer Mother Lung cancer Social History Social History Social History: Former drinking and smoker. He has no food or drug allergies. He would like to be a full code. he is a retired policeman. Smoking packs per day: 1 Smoking cigarettes per day: 20.0 Years smoked: 39 Smoking pack-years: 39.00 Smoking status: Current every day smoker Tobacco type: cigarettes and cigars Smoking end date: 09/05/19 Alcohol intake: current Drinks per week: 40 Substance use: never Substance use type: does not use Gender identity (if verbalized by the patient): Male Spiritual care concerns: No Mod Sed Physical Exam Physical Exam Pre Procedural Exam: Normal: Appearance, Neck, Throat, Airway, Lungs, Heart Size, Heart Rate, Heart Rhythm, Neuro Exam and Extremities and Variation: Abdomen (Continues with mild expressive aphasia) Hours since solid foods: 12 Hours since liquid intake: 12 Internal Medicine - PN: Obj Da Vital Signs Vital Signs: Vital Signs - 24 hr 09/11/19 12:00 09/11/19 14:00 09/11/19 16:00 Temperature 36.7 C Pulse Rate 75 63 62 Respiratory Rate 20 Blood Pressure 175/97 H Pulse Oximetry 99 09/11/19 20:00 09/12/19 00:00 09/12/19 02:10 Temperature 36.8 C Pulse Rate 68 51 L 55 L Respiratory Rate 20 Blood Pressure 165/93 H 139/87 Pulse Oximetry 100 09/12/19 04:00 09/12/19 05:00 Temperature 36.9 C Pulse Rate 59 L 84 Respiratory Rate 20 Blood P
--- NOTE | 2019-09-12 08:46 | PCPTNOTE ---
Patient out of room for test/procedure, unable to be seen for P.T. at this time. P.T. will continue to follow per plan of care
--- NOTE | 2019-09-12 08:57 | P.PCNCC_ITS ---
Cardiac Cath Procedure Note Date of procedure:: 09/12/19 Performing physician:: Zhou Burrell MD Indication:: Cryptogenic stroke Brief clinical history:: 58-year-old gentleman without specific cardiac history who has had symptoms of intermittent cerebral ischemia and a documented CVA last week. Echocardiogram/contrast injection was reported as negative but on my review there was some redundancy of the septum resulting in my recommendation to perform an esophageal echo to rule out a patent foramen ovale. Procedure Procedure performed:: Transesophageal echocardiogram with Doppler and saline contrast injection Sedation/Medication given:: Fentanyl 50 mg Versed 6 mg Estimated blood loss:: No blood loss Procedure note:: Patient was brought to the cardiac catheterization lab holding area in the postabsorptive state. The patient was sedated with the combination of fentanyl and Versed described above in aliquots. He had very good procedural sedation. Prior to sedating the oropharynx was sprayed with benzocaine. After he was sedated the transesophageal echo probe was passed easily into the esophagus and multiplane imaging was performed of the heart with attention to the atrium atrial septum. When the visualization of the septum was optimized agitated saline contrast was injected 2 times to assess for evidence of [id number]-am-[id number] shunting. Following this the descending thoracic aorta and aortic arch were imaged in detail. The procedure was then terminated and the RICO probe was withdrawn. Findings:: The left atrium is of normal dimension. The atrium and its appendage were visualized and there was no evidence of thrombus. The mitral valve is and aortic valves are anatomically normal without regurgitant lesions. The left ventricle is of normal size dimension and contractility. The atrial septum is thin and there is some mild redundancy and aneurysmal appearance of the septum there is no visible discontinuity. Color Doppler interrogation of the septum showed no evidence of shunting and agitated saline contrast injection x2 injections showed no evidence of hwlsy-ce-zvuk shunting. Conclusion:: Rico showing evidence of mildly redundant atrial septum but no visualization of and no Doppler or saline contrast evidence of a shunt. No cardioembolic CVA source appears to be present Zhou Burrell MD [facility]
--- NOTE | 2019-09-12 09:59 | PC.NURSE ---
Pt returned from [employer]orer [employer] via hospital bed.
--- NOTE | 2019-09-12 10:00 | ECHO_ITS ---
Patient Info Name: Jose Kumar Age: 58 years : 1960 Gender: Male Ht: 70 in Wt: 186 lbs BSA: 2.05 m2 HR: 73 bpm Heart Rhythm: Sinus Rhythm Exam Date: 09/12/2019 8:38 AM Exam Location: [facility] Patient Status: Inpatient Admit Date: 09/09/2019 Staff Ordering Physician: Kristi Vargas APRN Plaster Helper: Raphael Madsen RDCS, RT Attending Provider: Mitra Kay PA-C Referring Physician: Sam WATSON; Exam Type: CA echo transesophageal Study Info Indications G45.9 - Transient cerebral ischemic attack, unspecified Complete two-dimensional, color flow and Doppler transesophageal study is performed. Procedure Details The patient arrived in a fasting state after obtaining informed consent. The transesophageal probe was passed into the posterior pharynx, mid-esophagus, distal esophagus, and gastric fundus. Imaging was performed at multiple levels. The patient tolerated the procedure well and there were no complications. The patient was transferred out of the examination area in satisfactory condition. Summary 1. Doppler interrogation of the septum and saline contrast demonstrate no evidence of intracardiac shunt. 2. The atrial septum is mildly redundant but visually intact with no atrial septal defect or PFO. Left Ventricle Left ventricular chamber dimension is normal. Right Ventricle Right ventricular chamber dimension is normal. Left Atria Left atrial chamber dimension is normal. Right Atria Right atrial chamber dimension is normal. Atrial Septum The atrial septum is mildly redundant but visually intact with no atrial septal defect or PFO. Doppler interrogation of the septum and saline contrast demonstrate no evidence of intracardiac shunt. Aortic Valve The aortic valve is normal. Pulmonic Valve The pulmonic valve is not well visualized. Mitral Valve The mitral valve has normal leaflets. Tricuspid Valve The tricuspid valve leaflets are normal. Pericardium/Pleural The pericardium appears normal. Inferior Vena Cava Not well visualized inferior vena cava with Empty collapse upon inspiration consistent with Empty right atrial pressure, Empty. Aorta The aortic root size at the sinus of Valsalva is normal. Report Signatures
[2019-09-12] MEDS: MAGNESIUM OXIDE 400 MG TABLET PO (10:12)
[2019-09-12] MEDS: CLOPIDOGREL BISULFATE 75 MG TABLET PO (10:12)
[2019-09-12] MEDS: lisinopriL 5 MG TABLET PO (10:13)
[2019-09-12] MEDS: ASPIRIN 81 MG CHEWABLE TABLET PO (10:13)
[2019-09-12] MEDS: ATORVASTATIN 40 MG TABLET PO (10:13)
--- NOTE | 2019-09-12 10:44 | WPDNEUROPN ---
Progress Note: A&P Assessment and Plan (1) CVA (cerebral vascular accident): Code(s): I63.9 - Cerebral infarction, unspecified Status: Acute (2) Slurred speech: Code(s): R47.81 - Slurred speech Status: Acute (3) Tobacco dependence: Code(s): F17.200 - Nicotine dependence, unspecified, uncomplicated Status: Acute (4) Hyperlipidemia: Code(s): E78.5 - Hyperlipidemia, unspecified Status: Acute (5) Paresthesia of left arm: Code(s): R20.2 - Paresthesia of skin Status: Acute (6) Dysarthria: Code(s): R47.1 - Dysarthria and anarthria Status: Acute (7) Hypertension: Qualifiers: Hypertension type: essential hypertension Qualified Code(s): I10 - Essential (primary) hypertension Code(s): I10 - Essential (primary) hypertension Status: Acute (8) Alcoholism: Code(s): F10.20 - Alcohol dependence, uncomplicated Status: Acute (9) TIA (transient ischemic attack): Code(s): G45.9 - Transient cerebral ischemic attack, unspecified Status: Acute (10) Leukocytosis: Qualifiers: Leukocytosis type: unspecified Qualified Code(s): D72.829 - Elevated white blood cell count, unspecified Code(s): D72.829 - Elevated white blood cell count, unspecified Status: Acute (11) Essential hypertension: Code(s): I10 - Essential (primary) hypertension Status: Acute Additional Plan subcortical stroke Review of Systems Review of Systems: All systems reviewed & are unremarkable except as noted in HPI and below Exam Const: General: cooperative, healthy appearing, comfortable, no acute distress, well developed, alert, awake and Physically active Nutritional Appearance: average body habitus Orientation/consciousness: patient oriented x3 Limitations: no limitations HENMT: Head: normal to inspection General nose exam: Normal external nose present Face and sinus: normal facial exam Mouth: Yes Normal oral and palatal mucosa present Eyes: General: appearance normal, both eyes and all related structures Neck: Neck: full ROM Resp: Effort & Inspection: normal respiratory effort and able to speak in complete sentences Cardio: Rate: regular rate Rhythm: regular rhythm GI: Auscultation: normal bowel sounds Skin: General skin exam: no rashes or lesions noted Neuro: General: patient oriented x3, gait normal and moves all extremities Cranial nerves: Yes CN's II-XII intact bilaterally, Yes Equal, round and reactive pupils present, Yes Nystagmus not present, Yes Normal facial strength present, Yes Midline tongue present and Yes Ability to bilaterally elevate shoulders present Cognition (Neuro): normal cognition Speech: normal speech Gait exam (Neuro): Normal gait present Motor exam (neuro): 5/5 motor strength present throughout (improving) Psych: Appearance: grossly normal Objective Data Vital Signs Vital Signs: Vital Signs - 24 hr 09/11/19 12:00 09/11/19 14:00 09/11/19 16:00 Temperature 36.7 C Pulse Rate 75 63 62 Respiratory Rate 20 Blood Pressure 175/97 H Pulse Oximetry 99 09/11/19 20:00 09/12/19 00:00 09/12/19 02:10 Temperature 36.8 C Pulse Rate 68 51 L 55 L Respiratory Rate 20 Blood Pressure 165/93 H 139/87 Pulse Oximetry 100 09/12/19 04:00 09/12/19 05:00 09/12/19 08:00 Temperature 36.9 C Pulse Rate 59 L 84 59 L Respiratory Rate 20 Blood Pressure 155/89 H Pulse Oximetry 98 09/12/19 08:40 09/12/19 08:45 09/12/19 08:50 Temperature Pulse Rate 63 61 91 Respiratory Rate 22 H 16 22 H Blood Pressure 192/99 H 188/106 H 214/128 H Pulse Oximetry 100 100 100 09/12/19 08:55 09/12/19 09:00 09/12/19 09:15 Temperature 36.8 C Pulse Rate 58 L 54 L 59 L Respiratory Rate 14 12 16 Blood Pressure 159/104 H 164/82 H 171/102 H Pulse Oximetry 97 93 98 09/12/19 09:30 09/12/19 09:45 09/12/19 10:05 Temperature 36.4 C Pulse Rate 52 L 55 L
--- NOTE | 2019-09-12 10:57 | PM.DS ---
DS: Admitting Diagnosis Admitting Diagnosis Admitting Diagnosis: Slurred speech DS: Discharge Diagnosis Discharge Diagnosis (1) CVA (cerebral vascular accident): Code(s): I63.9 - Cerebral infarction, unspecified Status: Acute Assessment and Plan: -----patient's symptoms and MRI findings are consistent with acute CVA. MRI shows it is in the area basal ganglia and posterior limb right internal capsule. 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 DANIELE day of discharge normal. Continue with therapy outpt. There is no signs of atrial fibrillation but I do believe cardiology plans to put a loop recorder in outpt. During his previous hospitalization a few days prior to this hospitalization, he had a negative MRI and CT and a CTA of his head and neck was done which did not show any significant stenosis. With that being said, he is a high risk for stroke because of his risk factors of elevated LDL, smoking, uncontrolled high blood pressure, and recent TIA. Will continue statin therapy, aspirin, and plavix. Patient understands he should quit smoking to prevent another stroke. (2) Slurred speech: Code(s): R47.81 - Slurred speech Status: Acute Assessment and Plan: -----due to above (3) Hyperlipidemia: Code(s): E78.5 - Hyperlipidemia, unspecified Status: Acute Assessment and Plan: -----continue Lipitor (4) Hypertension: Qualifiers: Hypertension type: essential hypertension Qualified Code(s): I10 - Essential (primary) hypertension Code(s): I10 - Essential (primary) hypertension Status: Acute Assessment and Plan: -----last blood pressure 164/104. Lisinopril restarted. (5) Tobacco dependence: Code(s): F17.200 - Nicotine dependence, unspecified, uncomplicated Status: Acute Assessment and Plan: -----patient does not desire nicotine patch at this time. DS: Summary Hospital Course Reason for hospitalization: Stroke Hospital Course: patient is a 58-year-old male who presented emergency room with left-sided numbness and weakness after being hospitalized earlier that week for possible TIA. Vitals in the ER showed a elevated blood pressure 190/106. Head CT was negative. The patient was not given tPA And was admitted to the hospitalist service. patient underwent an MRI which confirmed suspected stroke. Please see above for further details Time spent discussing smoking cessation with patient: more than 10 minutes Status at Discharge Functional status at discharge: independent ambulation Overall status at discharge: patient is back to baseline Time Spent with Patient Time attestation: Total time spent providing and/or coordinating discharge services:38 min Time spent: Greater than 30 minutes Exam Narrative: Exam Narrative: General:Well developed well nourished patient resting in bed in NAD HEENT: Normocephalic, atraumatic, PERRL, Sclerae anicteric, oral mucosa moist. Neck: Supple Resp: CTA Heart: RRR with no murmurs. Tele reviewed with no abnormalities. Abd: Soft, nontender. No pain to palpation. Positive bowel sounds Skin: Warm and dry. No rashes, wounds, or bites. Extremities: No swelling, erythema or pain to palpation Neuro: Alert and Oriented x4. Left sided facial droop with slurred speech. Able to do [id number] accuracy improved compared to the day prior Discharge Plan Discharge Attending physician on discharge: Quentin Alston Consulting providers: Wilbert Garcia ; Brad Byrnes ; Geneva Kincaid ; Zhou Burrell ; Jm Thomson ; Mitra Kay ; Pardeep Landrum ; Parvez Stapleton V. Discharging Clinician: Mitra Kay Patient Disposition: Home, Self-Care Activity: may drive after 2 weeks Diet: regular Discharge Instructions: -Follow up with your primary care doctor in 1-2 weeks about this stay -If you have additional stroke like symptoms alyssa
--- NOTE | 2019-09-12 11:05 | PM.PNCARD ---
Progress Note: A&P Additional Plan As detailed above the esophageal echo did not show any structural cardiac reason for an embolic CVA. Possibility of paroxysmal atrial fib remains in the differential diagnosis although he has been in the hospital for several days with no evidence of this either. He should have longer term monitoring either with an event monitor or an implanted loop recorder. Either would be reasonable. It is the patient's preference to go with a 30 day event monitor rather than have an implanted device at this time. I will arrange to the for this to be done through the office following discharge. He may be discharged today. Zhou Burrell MD [facility]IN [facility] Subjective Date/time seen: Date of service: 09/12/19 11:05 Interval history: Follow-up visit in this 58-year-old man with cryptogenic CVA. Transesophageal ECHO this morning was negative for evidence of PFO, study performed because of mild redundancy in the atrial septum. Patient is asymptomatic and hoping to be discharged. He should have monitoring done to rule out paroxysmal atrial fibrillation with the options being a 30 day event monitor versus an implanted loop recorder. Exam Const: General: comfortable and no acute distress HENMT: Mouth: Yes moist mucous membranes Eyes: Sclera: sclerae normal Pupils: Equal, round and reactive pupils present Neck: Neck: supple and no JVD Thyroid: thyroid normal Resp: Effort & Inspection: normal respiratory effort Auscultation: clear to auscultation bilaterally Cardio: Rate: regular rate Rhythm: regular rhythm GI: Auscultation: normal bowel sounds Skin: General skin exam: normal color Neuro: Cognition (Neuro): normal cognition Extrem: General: normal to inspection Objective Data Vital Signs Vital Signs: Vital Signs - 24 hr 09/11/19 12:00 09/11/19 14:00 09/11/19 16:00 Temperature 36.7 C Pulse Rate 75 63 62 Respiratory Rate 20 Blood Pressure 175/97 H Pulse Oximetry 99 09/11/19 20:00 09/12/19 00:00 09/12/19 02:10 Temperature 36.8 C Pulse Rate 68 51 L 55 L Respiratory Rate 20 Blood Pressure 165/93 H 139/87 Pulse Oximetry 100 09/12/19 04:00 09/12/19 05:00 09/12/19 08:00 Temperature 36.9 C Pulse Rate 59 L 84 59 L Respiratory Rate 20 Blood Pressure 155/89 H Pulse Oximetry 98 09/12/19 08:40 09/12/19 08:45 09/12/19 08:50 Temperature Pulse Rate 63 61 91 Respiratory Rate 22 H 16 22 H Blood Pressure 192/99 H 188/106 H 214/128 H Pulse Oximetry 100 100 100 09/12/19 08:55 09/12/19 09:00 09/12/19 09:15 Temperature 36.8 C Pulse Rate 58 L 54 L 59 L Respiratory Rate 14 12 16 Blood Pressure 159/104 H 164/82 H 171/102 H Pulse Oximetry 97 93 98 09/12/19 09:30 09/12/19 09:45 09/12/19 10:05 Temperature 36.4 C Pulse Rate 52 L 55 L 55 L Respiratory Rate 15 17 16 Blood Pressure 142/86 H 146/97 H 164/104 H Pulse Oximetry 97 96 100 Intake/Output Intake/Output: Intake & Output 09/09/19 09/10/19 09/11/19 09/12/19 23:59 23:59 23:59 23:59 Intake Total 1670 2510 2360 Output Total 751 275 Balance 919 2235 2360 Meds/Results Medications: Active Medications Generic Name Dose Route Start Last Admin Trade Name Freq PRN Reason Stop Dose Admin Acetaminophen 650 mg 09/08/19 16:28 09/08/19 16:45 Tylenol Tablet PO 650 mg Q6H PRN Administration Mild Pain (1-3) or Fever Alprazolam 0.25 mg 09/08/19 16:17 09/08/19 16:45 Xanax PO 0.25 mg TID PRN Administration Anxiety Aspirin 81 mg 09/09/19 08:00 09/12/19 10:13 Aspirin Chewable PO 81 mg DAILY@0800 [facility] Administration Atorvastatin Calcium 40 mg 09/09/19 09:00 09/12/19 10:13 Lipitor PO 40 mg DAILY [facility] Administration Clopidogrel Bisulfate 75 mg 09/09/19 09:00 09/12/19 10:12 Plavix PO 75 mg QAM [facility] Administration Hydralazine HCl 10 mg 09/09/19 08:51 Apresoline Hcl Inj IV PUSH Q8H PRN systolic >180 Lisinopril 5 mg 09/10
== END 2019-09-12 11:52 | disposition home or self-care (01) | DRG 65 ==
LOC: ANHED 12:54 → ANH2MED 13:12
PROVIDERS: Physician Assistant; Specialist; Admitting Provider Internal Medicine; Emergency Provider Emergency Medicine; Visit Provider Internal Medicine
PROC: B24BZZ4 Ultrasonography of Heart with Aorta, Transesophageal (ICD-10-PCS; CPT 93312; principal; 2019-09-12 10:00)
PROC: B24BZZ4 Ultrasonography of Heart with Aorta, Transesophageal (ICD-10-PCS; CPT 93312; 2019-09-12 10:00)
DX: I63.9 Cerebral infarction, unspecified (principal); G81.94 Hemiplegia, unspecified affecting left nondominant side; R47.1 Dysarthria and anarthria; R29.703 NIHSS score 3; R20.2 Paresthesia of skin; E78.5 Hyperlipidemia, unspecified; F17.201 Nicotine dependence, unspecified, in remission; F10.20 Alcohol dependence, uncomplicated
CPT/HCPCS: 36415; 70450; 70553; 71045; 80048; 80307; 82607; 82746; 82948; 83735; 84100; 84484; 85025; 85610; 85652; 85730; 86140; 92507; 92522; 92526; 93005; 93312; 93320; 93325; 94762; 96374; 97110; 97116; 97161; 97165; 97530; 99285; A9270; A9577; G0378; J0360; J2250; J3010; J7040

== ENCOUNTER 2023-12-14 11:18 | Emergency (ER) | payer OTHER, SELFPAY ==
[2023-12-14 11:56] VITALS: BP 137/79; PULSE 70; RESP 16; TEMP 36.6; O2SAT 100
--- NOTE | 2023-12-14 18:57 | ED_ITS ---
HPI - URI/Sore Throat General Chief Complaint: Upper Respiratory Infection Stated Complaint: SINUS INFECTION Related Data Home Medications Medication Instructions Recorded Confirmed B Complex-Vitamin B12 1 caplet PO DAILY 09/05/19 12/14/23 ascorbic acid (vitamin C) 500 mg 5,000 mg PO DAILY 09/05/19 12/14/23 capsule,extended release cholecalciferol (vitamin D3) 10 5,000 unit PO BID 09/05/19 12/14/23 mcg (400 unit) tablet magnesium gluconate 400 mg PO DAILY 09/05/19 09/08/19 amlodipine 10 mg tablet 10 mg PO DAILY 12/14/23 12/14/23 olmesartan 20 mg tablet 20 mg PO DAILY 12/14/23 12/14/23 Allergies Allergy/AdvReac Type Severity Reaction Status Date / Time amoxicillin Allergy Itching Verified 12/14/23 12:19 [facility] Past Medical History Medical History (Updated 12/14/23 @ 19:00 by Lilliana Yuen APRN) Alcoholism Hyperlipidemia Hypertension Stroke Tobacco dependence Surgical History Surgical History H/O inguinal hernia repair Family History Family History Father Family history of malignant neoplasm Lung cancer Mother Lung cancer Social History Social History Social History: Former drinking and smoker. He has no food or drug allergies. He would like to be a full code. he is a retired police manager. Smoking packs per day: 1 Smoking cigarettes per day: 20.0 Years smoked: 39 Smoking pack-years: 39.00 Smoking status: Current every day smoker Tobacco type: cigarettes and cigars Smoking end date: 09/05/19 Alcohol intake: current Drinks per week: 40 Substance use: never Substance use type: does not use Gender identity (if verbalized by the patient): Male Spiritual care concerns: No Course Course Level of Care: Express Care Visit Vital Signs Vital signs: Vital Signs Temperature 97.8 F 12/14/23 11:56 Pulse Rate 70 12/14/23 11:56 Respiratory Rate 16 12/14/23 11:56 Blood Pressure 137/79 12/14/23 11:56 Pulse Oximetry 100 12/14/23 11:56 Oxygen Delivery Room Air 12/14/23 11:56 Temperature 97.8 F 12/14/23 11:56 Pulse Rate 70 12/14/23 11:56 Respiratory Rate 16 12/14/23 11:56 Blood Pressure 137/79 12/14/23 11:56 Pulse Oximetry 100 12/14/23 11:56 Oxygen Delivery Room Air 12/14/23 11:56 MDM - URI/Sore Throat MDM Narrative Medical decision making narrative: patient left before being evaluated by provider Discharge Plan Discharge Clinical Impression: Left before treatment completed Patient Disposition: Left Without Being Seen Prescriptions: No Action amlodipine 10 mg tablet 10 mg PO DAILY olmesartan 20 mg tablet 20 mg PO DAILY B Complex-Vitamin B12 1 caplet PO DAILY ascorbic acid (vitamin C) 500 mg Capsule, Extended Release 5,000 mg PO DAILY cholecalciferol (vitamin D3) 10 mcg (400 unit) Tablet 5,000 unit PO BID magnesium gluconate 400 mg PO DAILY Follow-up/Referrals: Adarsh,Ghanshyam Bates [Other
== END 2023-12-14 13:34 | disposition left against medical advice (07) ==
PROVIDERS: Emergency Provider Nurse Practitioner Family
DX: Z53.21 Procedure and treatment not carried out due to patient leaving prior to being seen by health care provider (principal)
CPT/HCPCS: 99199